=== PATIENT | female | born 1960 | race Caucasian/White ===

== ENCOUNTER 2019-12-17 09:09 | Emergency (ER) | payer OTHER, MEDICARE, SELFPAY ==
[2019-12-17 09:26] VITALS: BP 160/93; PULSE 88; RESP 18; TEMP 38.1; O2SAT 96
--- NOTE | 2019-12-17 09:52 | ED.URI ---
HPI - URI/Sore Throat General Chief Complaint: Upper Respiratory Infection Stated Complaint: Cough Time Seen by Provider: 12/17/19 09:50 Source: patient and RN notes reviewed Mode of arrival: ambulatory Limitations: no limitations History of Present Illness HPI Narrative: 58-year-old female presents with concern for cough, chest congestion, body aches, chills, sweats, fever that started on . Reports she is been taking Mucinex DM with no relief. Reports feeling of chest congestion, unable to cough up secretions. MD elicited complaint: cough Related Data Home Medications Medication Instructions Recorded Confirmed buspirone 10 mg PO TID 12/17/19 12/17/19 levothyroxine 12/17/19 12/17/19 losartan 50 mg PO DAILY 12/17/19 12/17/19 pravastatin 20 mg PO DAILY 12/17/19 12/17/19 rizatriptan [Maxalt] 10 mg PO ONCE 12/17/19 12/17/19 sertraline [Zoloft] 25 mg PO DAILY 12/17/19 12/17/19 Allergies Allergy/AdvReac Type Severity Reaction Status Date / Time adhesive tape Allergy Unknown BLISTERS Verified 12/17/19 09:50 aripiprazole Allergy Unknown Hives Verified 12/17/19 09:49 codeine Allergy Unknown Hives Verified 12/17/19 09:49 diclofenac Allergy Unknown Hives Verified 12/17/19 09:49 morphine Allergy Unknown Hypotension Verified 12/17/19 09:49 NSAIDS (Non-Steroidal Allergy Unknown Dyspnea / Verified 12/17/19 09:49 Anti-Inflamma SOB Penicillins Allergy Unknown Hives Verified 12/17/19 09:49 Khppjcc-Jvg-Mpu Reductase Allergy Unknown MUSCLE Verified 12/17/19 09:49 Inhibitor WEAKNESS lisinopril AdvReac Unknown NIGHT COUGH Verified 12/17/19 09:49 DICLOFENAC SODIUM Allergy Severe Difficulty Uncoded 12/17/19 09:50 Breathing Review of Systems Review of Systems: Narrative: CONSTITUTIONAL: Reports malaise, chills, sweats, fever. EYES: Denies visual changes, redness, or discharge. ENT: Reports rhinorrhea, congestion. Denies sinus pain, otalgia and sore throat. CARDIOVASCULAR: Denies chest pain, palpitations, or edema. RESPIRATORY: Reports cough, chest congestion. Denies dyspnea. GASTROINTESTINAL: Denies abdominal pain, nausea, vomiting, diarrhea SKIN: Denies rash or itching. MUSCULOSKELETAL: Reports myalgia. NEUROLOGIC: Reports headache. All systems reviewed & are unremarkable except as noted in HPI and below PMFSH Social History Social History Smoking status: Never smoker Alcohol intake: current Comments At time of signature, agree with nursing past medical, surgical, social and family history. There is no relevant family history pertinent to the presenting complaint Exam Narrative: Exam Narrative: GENERAL: Well-appearing, well-nourished, and in no acute distress. HEAD: Normocephalic EYES: PERRLA, conjunctivae clear ENT: Nares clear, turbinates edematous and erythematous, clear discharge. Mucous membranes moist. TM pearly vincent with dull light reflex bilaterally; no tragal tenderness. Oropharynx not erythematous without lesions. Tonsils not enlarged and without exudate, no drooling, no hoarseness, no trismus. NECK: Supple. No lymphadenopathy CHEST: Scattered expiratory wheeze, breath sounds equal. No wheezing, rhonchi, rales, or stridor. No respiratory distress, speaks in full sentences. Cough noted HEART: Regular rate and rhythm. No murmur heard. Normal peripheral pulses. SKIN: Warm, dry, no rash. NEURO: Alert and oriented x3. PSYCH: Normal mood and affect Course Course Emergency Course: Patient is aware of diagnosis, understands and agrees to treatment plan. Anticipatory guidance given. Patient agrees to follow-up as directed and is aware of reasons to seek care at the emergency department. Portions of this record may have been created with voice recognition software Vital Signs Vital signs: Vital Signs Temperature 100.5 F H 12/17/19 09:26 Pulse Rate 88 12/17/19 09:26 Respiratory Rate 18 12/17/19 09:26 Blood Pressure 160/93 H 12/17/19 09:26 Pulse Oximetry 96 12/17/19 09:26 Temperature
== END 2019-12-17 10:10 | disposition home or self-care (01) ==
PROVIDERS: Emergency Provider Nurse Practitioner
DX: J40 Bronchitis, not specified as acute or chronic (principal); R50.9 Fever, unspecified; R52 Pain, unspecified
CPT/HCPCS: 87804; 99213; G0463

== ENCOUNTER → 2020-01-02 10:03 | Outpatient (CLI) | payer OTHER, MEDICARE, SELFPAY ==
--- NOTE | ~2020-01-02 | MR_ITS ---
EXAMINATION: MR cervical spine wo con EXAM DATE: 01/02/2020 11:23 INDICATION: Neck and bilateral arm pain. TECHNIQUE: Multi-sequential, multiplanar MR images of the cervical spine were obtained without contra st. Axial T2, axial T2 MERGE sequence. Sagittal T1, T2, T2 fat saturation images also obtained. Com parison is made to prior examination from 04/07/2012. FINDINGS: The vertebral bodies are aligned in the AP dimension. Vertebral body and disc heights are well-maintained. There are no suspicious marrow signal abnormalities. The spinal cord signal intensit y and intrinsic morphology is normal. Cervicomedullary junction is normal in appearance. Paraspinal s oft tissue is unremarkable. Level by level evaluation: C2-C3: Disc does not extend beyond the endplate margin. Uncovertebral joint arthropathy: None. Facet joint arthropathy: Moderate left. Neural foraminal stenosis: No stenosis. Central canal stenosis: No stenosis. C3-C4: Disc does not extend beyond the endplate margin. Uncovertebral joint arthropathy: None. Facet joint arthropathy: Moderate to severe left, moderate right. Neural foraminal stenosis: Mild bilateral. Central canal stenosis: No stenosis. C4-C5: Disc does not extend beyond the endplate margin. Uncovertebral joint arthropathy: Mild right. Facet joint arthropathy: Moderate to severe left. Moderate right. Neural foraminal stenosis: Mild right. Central canal stenosis: No stenosis. C5-C6: Disc does not extend beyond the endplate margin. Uncovertebral joint arthropathy: Mild bilateral. Facet joint arthropathy: Moderate bilateral. Neural foraminal stenosis: No stenosis. Central canal stenosis: No stenosis. C6-C7: Disc does not extend beyond the endplate margin. Uncovertebral joint arthropathy: Mild to moderate right, mild left. Facet joint arthropathy: Mild to moderate bilateral. Neural foraminal stenosis: No stenosis. Central canal stenosis: No stenosis. C7-T1: Disc does not extend beyond the endplate margin. Uncovertebral joint arthropathy: None. Facet joint arthropathy: Moderate right, mild left. Neural foraminal stenosis: No stenosis. Central canal stenosis: No stenosis. Compared to prior study, mild interval progression in in the uncovertebral joint disease. IMPRESSION: 1. Some advanced cervical facet arthropathy as detailed above. Reviewed, dictated and finalized at location A.
== END ==
PROVIDERS: PCP Internal Medicine; Visit Provider Internal Medicine
DX: M54.2 Cervicalgia (principal)
CPT/HCPCS: 72141

== ENCOUNTER 2020-01-05 01:06 | Day surgery (SDC) | payer OTHER, MEDICARE, SELFPAY ==
[2020-01-04 09:08] VITALS: BMI 29.0
[2020-01-05] MEDS: LACTATED RINGERS 1,000 ML 150 ML IV CONT (07:38)
[2020-01-05 07:45] VITALS: BP 133/87; PULSE 84; RESP 18; TEMP 36.7; O2SAT 100; BMI 28.7
--- NOTE | 2020-01-05 08:27 | WPDGICN ---
Assessment and Plan Additional Plan This is a 59-year-old white female patient seen in evaluation at the request of Dr. Odell. patient complains of a 6 month history of nausea. Occasional vomiting. She denies any fever. She comes planes of occasional loose stools. He denies any blood in her stools. Past medical history is significant for GE reflux disease. She denies any difficulty swallowing. She denies any weight loss or bleeding. She chronically takes Nexium 40 mg p.o. daily. For control of symptoms. Past medical history is significant last colonoscopy was 10 years ago. An EGD P performed 2 years ago revealed a distal esophageal web. Current medications include Nexium 40 mg p.o. daily. Albuterol, boost per own, clonazepam, cyclobenzaprine, Vistaril, levothyroxine, losartan, hydrochlorothiazide, Maxalt, Zoloft. She has multiple allergies listed. Physical exam reveals her to be alert. Oriented x3. Vital signs stable. HEENT exam unremarkable. Lungs are clear to auscultation and percussion. Heart is without murmur or extra sounds. Abdominal exam bowel sounds are present soft nontender with no organomegaly. Digital external rectal exam normal. Impression 1. GE reflux disease this appears chronic. Follow-up EGD is advised given her current symptoms of nausea. Continue Nexium in the interim. 2. Neoplasia screening. This is advised because of her age is been 10 years since last colonoscopy. 3. Irritable bowel syndrome. suspected , her symptom complex matchesthis syndrome most likely. Plan is for fiber supplements. Given her nausea brief interval trial of Reglan is suggested. GI Consult Note Consult date/time: 01/05/20 08:27 HPI: Leona Pizarro is a 59 year old female [facility] Social History Social History Smoking status: Never smoker Alcohol intake: current Gender identity (if verbalized by the patient): Female Meds Home Medications and Allergies Home Medications Medication Instructions Recorded Confirmed Type albuterol sulfate 2 puff INHALATION QID PRN #8.5 gm 12/17/19 01/04/20 Rx buspirone 50 mg PO DAILY 12/17/19 01/04/20 History levothyroxine 0.112 mcg PO QAM 12/17/19 01/04/20 History pravastatin 20 mg PO QAM 12/17/19 01/04/20 History rizatriptan [Maxalt] 10 mg PO ONCE PRN 12/17/19 01/04/20 History sertraline [Zoloft] 25 mg PO QAM 12/17/19 01/04/20 History clonazepam 1 mg PO HS 01/04/20 01/04/20 History cyclobenzaprine 10 mg PO HS 01/04/20 01/04/20 History esomeprazole magnesium [Nexium] 40 mg PO QAM 01/04/20 01/04/20 History hydroxyzine pamoate [Vistaril] 25 mg PO HS 01/04/20 01/04/20 History ipratropium bromide 2 spray NASAL BID PRN 01/04/20 01/04/20 History loratadine 10 mg PO QAM 01/04/20 01/04/20 History losartan-hydrochlorothiazide 1 tablet PO QAM 01/04/20 01/04/20 History phenazopyridine [Pyridium] 200 mg PO TID PRN 01/04/20 01/04/20 History Allergies Allergy/AdvReac Type Severity Reaction Status Date / Time acetaminophen Allergy Severe Rash Verified 01/05/20 07:27 adhesive tape Allergy Unknown BLISTERS Verified 01/05/20 07:27 aripiprazole Allergy Unknown Irritable Verified 01/05/20 07:27 morphine Allergy Unknown Hypotension Verified 01/04/20 08:55 NSAIDS (Non-Steroidal Allergy Unknown Rash Verified 01/05/20 07:27 Anti-Inflamma Penicillins Allergy Unknown Hives Verified 01/05/20 07:27 celecoxib [From Celebrex] AdvReac Unknown Nausea and Verified 01/05/20 07:27 Vomiting lisinopril AdvReac Unknown NIGHT COUGH Verified 01/05/20 07:27 [id number]-[id number] Reductase AdvReac Unknown MUSCLE Verified 01/05/20 07:27 Inhibitor WEAKNESS DICLOFENAC SODIUM Allergy Severe Difficulty Uncoded 01/05/20 07:27 Breathing Vital Signs Vital Signs - 24 hr 01/05/20 07:45 Temperature 36.7 C Pulse Rate 84 Respiratory Rate 18 Blood Pressure 133/87 Pulse Oximetry 100
--- NOTE | 2020-01-05 08:37 | WPDANESEPPF ---
Anes - Initial Pre Proc Eval Procedure: Operation Date: 01/05/20 08:30 Proposed Procedures p Esophagogastroduodenoscopy & Screening Colonoscopy - Cliff Ji MD Date/Time: 01/05/20 08:37 Surgeon: Cliff iJ MD Pre Op Diagnosis: Neoplasm Screening/Gerd Patient Data Age: 59 Gender: F Height: 5 ft 10 in Weight: 90.9 kg Last Vital Signs Temp 98.1 F 01/05/20 07:45 Pulse 84 01/05/20 07:45 Resp 18 01/05/20 07:45 BP 133/87 01/05/20 07:45 Pulse Ox 100 01/05/20 07:45 Allergies Allergy/AdvReac Type Severity Reaction Status Date / Time acetaminophen Allergy Severe Rash Verified 01/05/20 07:27 adhesive tape Allergy Unknown BLISTERS Verified 01/05/20 07:27 aripiprazole Allergy Unknown Irritable Verified 01/05/20 07:27 morphine Allergy Unknown Hypotension Verified 01/04/20 08:55 NSAIDS (Non-Steroidal Allergy Unknown Rash Verified 01/05/20 07:27 Anti-Inflamma Penicillins Allergy Unknown Hives Verified 01/05/20 07:27 celecoxib [From Celebrex] AdvReac Unknown Nausea and Verified 01/05/20 07:27 Vomiting lisinopril AdvReac Unknown NIGHT COUGH Verified 01/05/20 07:27 Npdagmr-Nbs-Dzl Reductase AdvReac Unknown MUSCLE Verified 01/05/20 07:27 Inhibitor WEAKNESS DICLOFENAC SODIUM Allergy Severe Difficulty Uncoded 01/05/20 07:27 Breathing Home Medications Medication Instructions Recorded Confirmed Type albuterol sulfate 2 puff INHALATION QID PRN #8.5 gm 12/17/19 01/04/20 Rx buspirone 50 mg PO DAILY 12/17/19 01/04/20 History levothyroxine 0.112 mcg PO QAM 12/17/19 01/04/20 History pravastatin 20 mg PO QAM 12/17/19 01/04/20 History rizatriptan [Maxalt] 10 mg PO ONCE PRN 12/17/19 01/04/20 History sertraline [Zoloft] 25 mg PO QAM 12/17/19 01/04/20 History clonazepam 1 mg PO HS 01/04/20 01/04/20 History cyclobenzaprine 10 mg PO HS 01/04/20 01/04/20 History esomeprazole magnesium [Nexium] 40 mg PO QAM 01/04/20 01/04/20 History hydroxyzine pamoate [Vistaril] 25 mg PO HS 01/04/20 01/04/20 History ipratropium bromide 2 spray NASAL BID PRN 01/04/20 01/04/20 History loratadine 10 mg PO QAM 01/04/20 01/04/20 History losartan-hydrochlorothiazide 1 tablet PO QAM 01/04/20 01/04/20 History phenazopyridine [Pyridium] 200 mg PO TID PRN 01/04/20 01/04/20 History Patient hx anesthesia problems: none Family hx anesthesia problems: none [facility] Past Medical History Medical History (Updated 01/05/20 @ 08:36 by Ronald Petersen MD) Deep vein thrombophlebitis of leg Hyperlipidemia Hypertension Migraine Peripheral vascular disease Social History Social History Smoking status: Never smoker Alcohol intake: current Gender identity (if verbalized by the patient): Female Anes - Eval Final PreProcedure Day of Procedure 01/05/20 08:37 Patient weight: overweight Heart: regular rate and rhythm Lungs: clear to auscultation Airway: Mallampati scale class II Neurological: alert and oriented Last oral intake: >/= 8 hours ASA classification: III Emergent: no Anesthetic plan: proceed Anesthesia type and monitoring: general GIVS and standard monitoring Informed Consent: The patient's anesthetic plan and its attendant risks and benefits were discussed with the patient/family/POA. Questions were solicited and answers provided to the satisfaction of the patient/family/POA.
[2020-01-05] MEDS: BENZOCAINE (*SP) 60 ML SPRAY CAN (HURRICAINE) 1 SPRAY MUCOUS MEM (09:20)
[2020-01-05 09:53] VITALS: BP 112/72; PULSE 82; RESP 16; O2SAT 95
[2020-01-05 10:03] VITALS: BP 117/73; PULSE 80; RESP 22; O2SAT 97
[2020-01-05 10:13] VITALS: BP 121/77; PULSE 70; RESP 20; O2SAT 100
== END 2020-01-05 10:30 | disposition home or self-care (01) ==
PROVIDERS: PCP Internal Medicine; Visit Provider Internal Medicine Gastroenterology
PROC: 0DJ08ZZ Inspection of Upper Intestinal Tract, Via Natural or Artificial Opening Endoscopic (ICD-10-PCS; CPT 43235; principal; 2020-01-05 08:30)
DX: Z12.11 Encounter for screening for malignant neoplasm of colon (principal); K57.30 Diverticulosis of large intestine without perforation or abscess without bleeding; K64.8 Other hemorrhoids; I10 Essential (primary) hypertension; E78.5 Hyperlipidemia, unspecified; I73.9 Peripheral vascular disease, unspecified; Z86.718 Personal history of other venous thrombosis and embolism
CPT/HCPCS: 45378; 87081; J2704; J7120

== ENCOUNTER 2020-02-29 09:40 | Outpatient (CLI) | payer OTHER, MEDICARE, SELFPAY ==
--- NOTE | 2020-02-29 11:00 | NEURO_ITS ---
Patient Number: [id number] Impression: # Complains of numbness and pain. History of trauma followed by surgery on left hand. # No Carpal Tunnel Syndrome or ulnar neuropathy. # Needle/EMG exam not requested. # Clinical correlation recommended. Symptomatology could be related to local trauma. Nerve Conduction Studies Anti Sensory Summary Table Stim Site NR Peak (ms) P-T Amp (?V) Site1 Site2 Delta-P (ms) Dist (cm) Fahad (m/s) Left Median Anti Sensory (2-3nd Digit) Wrist 2.9 48.3 Wrist 2-3nd Digit 2.9 14.0 48 Wrist 3.0 51.6 Wrist 2-3nd Digit 2.9 14.0 48 Right Median Anti Sensory (2-3nd Digit) Wrist 2.9 32.7 Wrist 2-3nd Digit 2.9 14.0 48 Wrist 2.9 27.4 Wrist 2-3nd Digit 2.9 14.0 48 Left Radial Anti Sensory (Base 1st Digit) Wrist 2.1 13.5 Wrist Base 1st Digit 2.1 0.0 Right Radial Anti Sensory (Base 1st Digit) Wrist 2.5 10.7 Wrist Base 1st Digit 2.5 0.0 Left Ulnar Anti Sensory (5th Digit) Wrist 2.5 34.9 Wrist 5th Digit 2.5 14.0 56 Right Ulnar Anti Sensory (5th Digit) Wrist 2.4 59.4 Wrist 5th Digit 2.4 14.0 58 Motor Summary Table Stim Site NR Onset (ms) O-P Amp (mV) Site1 Site2 Delta-0 (ms) Dist (cm) Fahad (m/s) Left Median Motor (Abd Poll Brev) Wrist 3.4 1.9 Elbow Wrist 5.1 31.0 61 Elbow 8.5 2.8 Right Median Motor (Abd Poll Brev) Wrist 3.1 3.1 Elbow Wrist 5.4 30.0 56 Elbow 8.5 1.3 Left Ulnar Motor (Abd Dig Minimi) Wrist 2.7 4.7 A Elbow Wrist 5.9 34.0 58 A Elbow 8.6 3.5 Right Ulnar Motor (Abd Dig Minimi) Wrist 2.5 4.7 A Elbow Wrist 5.4 32.0 59 A Elbow 7.9 3.6 F Wave Studies NR F-Lat (ms) L-R F-Lat (ms) Left Median (Mrkrs) (Abd Poll Brev) 27.86 0.19 Right Median (Mrkrs) (Abd Poll Brev) 28.05 0.19 Left Ulnar (Mrkrs) (Abd Dig Min) 29.85 2.72 Right Ulnar (Mrkrs) (Abd Dig Min) 27.12 2.72 MTDD
== END 2020-02-29 09:41 | disposition home or self-care (01) ==
LOC: ANHNEURO 09:42
PROVIDERS: PCP Internal Medicine; Visit Provider Plastic Surgery
DX: R20.0 Anesthesia of skin (principal); M79.642 Pain in left hand; M79.641 Pain in right hand; R53.1 Weakness
CPT/HCPCS: 95911

== ENCOUNTER → 2020-07-30 12:37 | Outpatient (CLI) | payer OTHER, MEDICARE, SELFPAY ==
--- NOTE | ~2020-07-30 | US_ITS ---
EXAMINATION: US thyroid EXAM DATE: 07/30/2020 12:56 INDICATION: Hypothyroidism on medications. TECHNIQUE: Multiple grayscale and Doppler images of the thyroid were obtained (by a technologist who performed the scan) and subsequently reviewed. Individual nodules and recommendations may be reporte d in accordance with TI-RADS system as designated by the 2017 ACR White Paper TI-RADS committee. Comp sharla is made to prior examination from 11/28/2010. FINDINGS: Right thyroid lobe measures 4.4 x 1.6 x 1.2 cm, the left measuring 4.4 x 1.6 x 1.5 cm. There is diffu sely heterogeneous thyroid echogenicity, with mild hypervascularity overall. No focal nodules are queta ntified. IMPRESSION: Mildly enlarged, heterogeneous and hypervascular thyroid. Appearance is consistent with H ashimoto's thyroiditis. Reviewed, dictated and finalized at location B. IMPRESSION: Mildly enlarged, heterogeneous and hypervascular thyroid. Appearanc e is consistent with Ashley's thyroiditis.
== END ==
PROVIDERS: PCP Internal Medicine; Visit Provider Internal Medicine
DX: E03.9 Hypothyroidism, unspecified (principal)
CPT/HCPCS: 76536

== ENCOUNTER → 2020-07-30 12:51 | Outpatient (CLI) | payer OTHER, MEDICARE, SELFPAY ==
--- NOTE | ~2020-07-30 | XR_ITS ---
XR finger 1st RT min 2V DATE: 07/30/2020 13:31 INDICATION: Pain TECHNIQUE: 3 views COMPARISON: None FINDINGS: No fracture or dislocation, periosteal reaction or bone destruction, radiopaque soft tissue foreign body or subcutaneous emphysema. IMPRESSION: Negative Reviewed, dictated and finalized at location A. IMPRESSION: Negative
--- NOTE | ~2020-07-30 | XR_ITS ---
XR finger 1st LT min 2V DATE: 07/30/2020 13:31 INDICATION: Pain TECHNIQUE: 3 views COMPARISON: None FINDINGS: No fracture or dislocation, periosteal reaction or bone destruction, radiopaque foreign bod y or subcutaneous emphysema. IMPRESSION: Negative Reviewed, dictated and finalized at location A. IMPRESSION: Negative
== END ==
PROVIDERS: PCP Internal Medicine; Visit Provider Nurse Practitioner Adult Health
DX: M79.645 Pain in left finger(s) (principal); M79.644 Pain in right finger(s)
CPT/HCPCS: 73140

== ENCOUNTER → 2020-09-16 09:20 | Outpatient (CLI) | payer OTHER, MEDICARE, SELFPAY ==
--- NOTE | ~2020-09-16 | DEXA_ITS ---
Bone Density Report Name: Leona Pizarro Age: 59 Sex: Female Ethnicity: White Date of : 1960 Indication: postmenopausal; screening for osteoporosis; height loss; history of glucocorticoids; prior fracture; asthma or emphysema; hysterectomy; Referring Provider: Cass, Branden Study: Bone densitometry was performed. Exam Date: September 16, 2020 Accession number: [id number] Bone Density: Region BMD T-score Z-score Classification AP Spine (L1-L4) 1.142 0.9 2.2 Normal World Health Organization criteria for BMD impression classify patients as: Normal (T-score at or above -1.0), Osteopenia (T-score between -1.0 and -2.5), or Osteoporosis (T-score at or below -2.5). Clinical Information Provided by Patient: Has had a low trauma fracture Has taken Glucocorticoids Has used the following medications: Vitamin D Has the following medical conditions: Asthma or Emphysema, Hysterectomy Patient maximum height was 71 Menopause Age: 43 Does not regularly consume dairy products Drinks caffeinated beverages Onset of menses at age 12 Number of children 5 Impression: The patient has normal bone mass. The patient has risk factors, including: previous fracture, history of glucocorticoid therapy. Discussion: LOW RISK OF FRACTURE; BONE DENSITY IS WELL ABOVE THE MINIMUM DESIRABLE LEVEL AND ABOVE AVERAGE FOR AGE AND SEX AT ALL SKELETAL SITES TESTED. This person's bone density is above expected limits for age and sex. This is rarely clinically significant, but should be pursued if there are significant musculoskeletal complaints. The patient should follow a healthful lifestyle (good nutrition with adequate calcium and vitamin D, and appropriate weight-bearing exercise). Follow-Up: Consider repeating this study in 5 years or sooner if there is some new clinical indication. Reported by: CHRIS on 09/16/2020 10:00:00 AM. Reviewed, dictated and finalized at location AMary JOHNSON
== END ==
PROVIDERS: PCP Internal Medicine; Visit Provider Internal Medicine
DX: Z13.820 Encounter for screening for osteoporosis (principal); Z78.0 Asymptomatic menopausal state
CPT/HCPCS: 77080

== ENCOUNTER 2020-09-18 08:25 | Outpatient (CLI) | payer OTHER, MEDICARE, SELFPAY ==
--- NOTE | ~2020-09-18 | NM_ITS ---
EXAMINATION: NM bone scan whole body DATE: 09/18/2020 13:14 INDICATION: Bilateral hip and groin pain. TECHNIQUE: 25.6 mCi Tc-99m HDP was administered intravenously. Delayed whole-body scintigrams were o btained. COMPARISON: CT abdomen and pelvis 03/29/2010, right hip radiographs 09/11/2013 FINDINGS: There is joint-centered increased activity at the acromioclavicular joints and sternoclavic ular joints without comparison, likely osteoarthritis. There are bilateral hip arthroplasties. There is normal activity in the bone adjacent to the arthroplasties. IMPRESSION: 1. Normal bilateral hip arthroplasties. Comparison with radiographs is recommended. Reviewed, dictated and finalized at location A. ANTINE INSPECTOR IMPRESSION: 1. Normal bilateral hip arthroplasties. Comparison with radiographs is recommen ded.
== END 2020-09-18 08:26 | disposition home or self-care (01) ==
PROVIDERS: PCP Internal Medicine; Visit Provider Orthopaedic Surgery
DX: M25.551 Pain in right hip (principal); M25.552 Pain in left hip
CPT/HCPCS: 78306; A9561

== ENCOUNTER → 2020-09-26 06:59 | Outpatient (CLI) | payer OTHER, MEDICARE, SELFPAY ==
--- NOTE | ~2020-09-26 | MR_ITS ---
EXAMINATION: MR lumbar spine wo con DATE: 09/26/2020 07:52 INDICATION: Low back pain. Bilateral leg numbness. TECHNIQUE: Magnetic resonance imaging (MRI) of the lumbar spine was performed without intravenous con trast. Sequences included sagittal T2-weighted FSE, sagittal T2-weighted FS FSE, sagittal T1-weighted FSE, and axial T2-weighted FSE. COMPARISON: None FINDINGS: There is 6 degrees dextrocurvature of thoracolumbar spine. There is 3 mm anterolisthesis of L3 on L4. Vertebral body heights are normal. There is mildly decreased disc height at L3-L4 and L4-L 5. There is endplate remodeling at L4-L5 and L5-S1. The distal spinal cord signal intensity is normal . The conus medullaris is at L1-L2. The following disc levels are specifically discussed: L1-L2: The disc does not extend beyond the endplate margin. There is severe bilateral facet joint ost eoarthritis. There is mild bilateral neural foraminal stenosis. There is no central canal stenosis. L2-L3: The disc is bulging. There is severe bilateral facet joint osteoarthritis. There is mild bilat eral neural foraminal stenosis. There is no central canal stenosis. L3-L4: The disc does not extend beyond the endplate margin. There is severe bilateral facet joint ost eoarthritis. There is mild bilateral neural foraminal stenosis. There is mild central canal stenosis. L4-L5: The disc is bulging and has an annular fissure. There is severe bilateral facet joint osteoart hritis. There is mild bilateral neural foraminal stenosis. There is mild central canal stenosis. L5-S1: The disc is bulging. There is moderate right and severe left facet joint osteoarthritis. There is mild bilateral neural foraminal stenosis. There is mild central canal stenosis. IMPRESSION: 1. Mild lumbar spondylosis. Reviewed, dictated and finalized at location A. SETTER IMPRESSION: 1. Mild lumbar spondylosis.
== END ==
PROVIDERS: PCP Internal Medicine; Visit Provider Orthopaedic Surgery
DX: M47.26 Other spondylosis with radiculopathy, lumbar region (principal)
CPT/HCPCS: 72148

== ENCOUNTER 2020-10-14 21:32 | Emergency (ER) | payer OTHER, MEDICARE, SELFPAY ==
--- NOTE | ~2020-10-14 | XR_ITS ---
EXAMINATION: XR chest 2V 10/14/2020 22:55 INDICATION: Chest pain PROCEDURE: 2 view chest COMPARISON: No prior studies for comparison. FINDINGS: The lungs are clear. The cardiomediastinal silhouette is within normal limits. There are no pleural effusions. There is no pneumothorax suspected. IMPRESSION: 1: NO ACUTE CARDIOPULMONARY DISEASE. Reviewed, dictated and finalized at location A. IT CHECKER
[2020-10-14 21:30] VITALS: BP 160/92; PULSE 78; RESP 14; TEMP 36.3; O2SAT 100
[2020-10-14 21:37] VITALS: RESP 18; O2SAT 100
--- NOTE | 2020-10-14 21:45 | ECG_ITS ---
Measurements Intervals [place] Rate: 76 P: 26 GA: 188 QRS: -5 QRSD: 158 T: 53 QT: 388 QTc: 438 Interpretive Statements SINUS RHYTHM RIGHT BUNDLE BRANCH BLOCK BASELINE ARTIFACT- II, III, AVF, V3 ABNORMAL ECG Electronically Signed On 10-15-2020 7:47:32 ENGINE MONITOR by Jose A Hopkins D.O.
--- NOTE | 2020-10-14 21:45 | ED.ANXIETY ---
HPI - Anxiety General Chief Complaint: Anxiety <Daya Mendes MD - Last Filed: 10/15/20 01:16> Stated Complaint: anxiety with CP, SOB - resolved <Daya Mendes MD - Last Filed: 10/15/20 01:16> Time Seen by Provider: 10/14/20 21:45 <Daya Mendes MD - Last Filed: 10/15/20 01:16> Source: patient, family and EMS <Daya Mendes MD - Last Filed: 10/15/20 01:16> Mode of arrival: EMS <Daya Mendes MD - Last Filed: 10/15/20 01:16> Limitations: no limitations <Daya Mendes MD - Last Filed: 10/15/20 01:16> History of Present Illness HPI narrative: Patient is a 59-year-old female with a history of anxiety and depression who presents for evaluation of chest pain and shortness of breath that is resolved at the time of assessment. Patient reportedly took a flight from [place] to [place] this evening, states that she resides between the 2 locations. States that last week she had symptoms that were concerning for Covid with loss of sense of smell and taste, but no cough or shortness of breath thus never got tested. Patient states that her depression has been increased lately and her psychiatrist increased her Cymbalta dose which has made her feel jittery with increased anxiety. This evening, patient states that she had felt anxious and tired, thus when she got off the flight she and her family member ate some food, she smoked marijuana and then tried to go to sleep. Patient then states that she felt acutely short of breath, tingling in her lips, hands and feet with a dull, aching pressure over her chest and associated panic. Patient states that she called EMS because she was concerned she was having a heart attack. She denied any jaw pain, arm pain or back pain. No nausea or vomiting. Patient states that the paramedics told her she was having an anxiety attack but she disagreed. <Daya Mendes MD - Last Filed: 10/15/20 01:16> Related Data Home Medications: Home Medications Medication Instructions Recorded Confirmed buspirone 50 mg PO DAILY 12/17/19 01/04/20 levothyroxine 0.112 mcg PO QAM 12/17/19 01/04/20 pravastatin 20 mg PO QAM 12/17/19 01/04/20 rizatriptan [Maxalt] 10 mg PO ONCE PRN 12/17/19 01/04/20 sertraline [Zoloft] 25 mg PO QAM 12/17/19 01/04/20 clonazepam 1 mg PO HS 01/04/20 01/04/20 cyclobenzaprine 10 mg PO HS 01/04/20 01/04/20 esomeprazole magnesium [Nexium] 40 mg PO QAM 01/04/20 01/04/20 hydroxyzine pamoate [Vistaril] 25 mg PO HS 01/04/20 01/04/20 ipratropium bromide 2 spray NASAL BID PRN 01/04/20 01/04/20 loratadine 10 mg PO QAM 01/04/20 01/04/20 losartan-hydrochlorothiazide 1 tablet PO QAM 01/04/20 01/04/20 phenazopyridine [Pyridium] 200 mg PO TID PRN 01/04/20 01/04/20 <Daya Mendes MD - Last Filed: 10/15/20 01:16> Allergies/Adverse Reactions: Allergies Allergy/AdvReac Type Severity Reaction Status Date / Time acetaminophen Allergy Severe Rash Verified 03/06/20 09:23 adhesive tape Allergy Unknown BLISTERS Verified 03/06/20 09:23 aripiprazole Allergy Unknown Irritable Verified 03/06/20 09:23 morphine Allergy Unknown Hypotension Verified 03/06/20 09:23 NSAIDS (Non-Steroidal Allergy Unknown Rash Verified 03/06/20 09:23 Anti-Inflamma Penicillins Allergy Unknown Hives Verified 03/06/20 09:23 celecoxib [From Celebrex] AdvReac Unknown Nausea and Verified 03/06/20 09:23 Vomiting lisinopril AdvReac Unknown NIGHT COUGH Verified 03/06/20 09:23 Xqssdle-Cxw-Yuo Reductase AdvReac Unknown MUSCLE Verified 03/06/20 09:23 Inhibitor WEAKNESS duloxetine [From Cymbalta] AdvReac Vomiting Verified 10/14/20 21:43 oxycodone [From OxyContin] AdvReac Nausea and Verified 10/14/20 21:43 Vomiting DICLOFENAC SODIUM Allergy Severe Difficulty Uncoded 03/06/20 09:23 Breathing <Daya Mendes MD - Last Filed: 10/15/20 01:16> Review of Systems Review of Systems: Narrative: CONSTITUTIONAL: Denies fever, chills, or sweats. EYES: Denies visual ch
[2020-10-14 22:30] VITALS: BP 117/82; PULSE 81; RESP 16; O2SAT 100
[2020-10-14 22:48] LABS: Basophils Percent Auto 0.3 % (0.2-1.2); Eosinophils Percent Auto 0.3 % (0-4.4); Hematocrit 39.4 % (37.0-47.0); Hemoglobin 13.3 g/dL (12.0-15.0); Immature Granulocyte Absolute 0.03 K/mm3 (0.00-0.031); Immature Granulocyte Percent A 0.3 % (0-0.5); Lymphocytes Absolute Auto 3.15 K/mm3 (0.9-3.2); Lymphocytes Percent Auto 32.4 % (18.3-44.2); Mean Corpuscular HGB Conc 33.8 g/dl (32-36); Mean Corpuscular Hemoglobin 31.7 pg (26-34); Mean Corpuscular Volume 93.8 fl (80-100); Monocytes Absolute Auto 0.7 K/mm3 (0.1-0.6); Monocytes Percent Auto 7.4 % (2.6-8.5); Neutrophils Absolute Auto 5.8 K/mm3 (1.3-6.7); Neutrophils Percent Auto 59.3 % (45.5-73.1); Platelet Count Result 305 k/mm3 (150-375); Red Cell Distribution Width 12.8 % (11.5-14.5); White Blood Count 9.7 K/mm3 (4.5-10.0)
[2020-10-14 22:59] LABS: INR 0.9; Prothrombin Time 12.5 Seconds (11.1-14.7)
[2020-10-14 23:00] LABS: Partial Thromboplastin Time 24.7 SECONDS (22.3-36.8)
[2020-10-14 23:02] LABS: Anion Gap 10 mmol/L (8-16); Blood Urea Nitrogen 15 mg/dL (7-17); Calcium 9.5 mg/dL (8.4-10.2); Carbon Dioxide 27 mmol/L (22-30); Chloride 100 mmol/L (98-107); D Dimer 0.37 ug/mL (<0.48); Estimated CRCL calculation 85 ml/min; Estimated Glomerular Filt Rate > 60; Glucose 112 mg/dL (65-105); Potassium 3.5 mmol/L (3.4-5.0); Sodium 137 mmol/L (137-145)
[2020-10-14 23:14] LABS: Troponin I < 0.012 ng/mL (0.000-0.034)
[2020-10-14 23:27] VITALS: BP 122/77; PULSE 74; RESP 18; O2SAT 94
[2020-10-14 23:50] LABS: Add Urine Microscopic? YES; Appearance Urine Clear (Clear); Bacteria Urine Trace /hpf; Bilirubin Urine Negative (Negative); Color Urine Amber (Yellow); Glucose Urine UA Negative (Negative); Ketones Urine Negative (Negative); Leukocyte Esterase Ur 1+ LEU/UL (Negative); Mucus Urine Few /lpf; Nitrate Urine Negative (Negative); Protein Urine 2+ mg/dL (Negative); RBC Urine 0-2 /hpf (0-2); Specific Grav Ur 1.018 (1.001-1.035); Squamous Epithelial Cell Urine Many /hpf (Few)
[2020-10-14 23:51] LABS: Blood Urine Negative (Negative)
[2020-10-15 00:10] LABS: Amphetamine Screen Urine Negative (Negative); Barbiturate Screen Urine Negative (Negative); Benzodiazepines Screen Urine Negative (Negative); Cannabinoid Screen Urine Positive (Negative); Cocaine Screen Urine Negative (Negative); Methadone Screen Urine Negative (Negative); Opiate Screen Urine Negative (Negative); Phencyclidine Screen Urine Negative (Negative)
[2020-10-15 01:01] VITALS: BP 121/60; PULSE 69; RESP 16; O2SAT 97
[2020-10-15 01:56] LABS: Troponin I < 0.012 ng/mL (0.000-0.034)
[2020-10-15 02:02] VITALS: BP 127/63; PULSE 69; RESP 18; TEMP 36.8; O2SAT 94
== END 2020-10-15 02:04 | disposition home or self-care (01) ==
PROVIDERS: Emergency Provider Emergency Medicine; PCP Internal Medicine
DX: R07.89 Other chest pain (principal); F41.9 Anxiety disorder, unspecified; E78.5 Hyperlipidemia, unspecified; I10 Essential (primary) hypertension; I73.9 Peripheral vascular disease, unspecified; I45.10 Unspecified right bundle-branch block; Z79.899 Other long term (current) drug therapy
CPT/HCPCS: 36415; 71046; 80048; 80307; 81001; 84484; 85025; 85380; 85610; 85730; 87086; 93005; 99284

== ENCOUNTER → 2022-01-02 09:34 | Outpatient (CLI) | payer OTHER, MEDICARE, SELFPAY ==
--- NOTE | ~2022-01-02 | US_ITS ---
EXAMINATION: US thyroid DATE: 01/02/2022 09:49 INDICATION: Nontoxic goiter. TECHNIQUE: Multiple ultrasound images of the thyroid were obtained. COMPARISON: Ultrasound 07/30/2020 FINDINGS: The right thyroid lobe measures 5.4 x 1.7 x 1.3 cm. The left thyroid lobe measures 5.1 x 2.0 x 1.5 c m. The thyroid is heterogeneously hypoechoic with increased vascularity. No discrete nodule. IMPRESSION: 1. Heterogeneous, hypervascular thyroid, consistent with chronic lymphocytic (Ashley) thyroiditis. Reviewed, dictated and finalized at location A. LABORER IMPRESSION: 1. Heterogeneous, hypervascular thyroid, consistent with chronic lymphocytic (H ashimoto) thyroiditis.
== END ==
PROVIDERS: PCP Internal Medicine; Visit Provider Internal Medicine Endocrinology, Diabetes & Metabolism
DX: E04.9 Nontoxic goiter, unspecified (principal)
CPT/HCPCS: 76536

== ENCOUNTER → 2022-01-29 11:41 | Outpatient (CLI) | payer OTHER, MEDICARE, SELFPAY ==
--- NOTE | ~2022-01-29 | CT_ITS ---
EXAMINATION: CT diagnostic chest wo con EXAM DATE: 01/29/2022 12:00 INDICATION: Multiple nodules of lung. Wheezing. TECHNIQUE: Spiral CT of the chest without contrast. Axial, coronal and sagittal images of the chest were reviewed. Coronal maximum intensity pixel images of chest reviewed. The dose-length product ( DLP) for this examination was 201.48 mGy-cm. The exposure was tailored according to patient size (au to mA exposure control), and iterative reconstruction (ASIR) was used as additional dose reduction te nique. There is no prior study for comparison. FINDINGS: The lungs are clear. There are no pleural or pericardial effusions. Tracheobronchial t ree is patent. There is no mediastinal, hilar or axillary lymphadenopathy. There is no pneumothor ax. Heart normal in size. There is mild to moderate coronary arterial calcification, arterial scl erosis. There are cholecystectomy clips. There is mild thoracic spondylosis without osteoblastic or osteolytic lesions identified. IMPRESSION: Unremarkable chest CT exam. Reviewed, dictated and finalized at location A. IMPRESSION: Unremarkable chest CT exam.
== END ==
PROVIDERS: PCP Internal Medicine; Visit Provider Internal Medicine
DX: R91.8 Other nonspecific abnormal finding of lung field (principal)
CPT/HCPCS: 71250

== ENCOUNTER 2022-04-20 00:39 | Observation (INO) | payer OTHER, MEDICARE, SELFPAY ==
[2022-04-20] VITALS (28 sets, daily range): BP systolic 124–172; BP diastolic 67–86; PULSE 46–91; RESP 10–28; TEMP 36.3–36.9; O2SAT 97–100; BMI 34.5
--- NOTE | 2022-04-20 | ECHO_ITS ---
Patient Info Name: Leona Pizarro Age: 61 years : 1960 Gender: Female Ht: 68 in Wt: 227 lbs BSA: 2.26 m2 HR: 55 bpm BP: 138 / 68 mmHg Heart Rhythm: Sinus Rhythm Exam Date: 04/20/2022 2:44 PM Exam Location: [facility] Patient Status: Inpatient Admit Date: 04/20/2022 Staff Ordering Physician: Abelardo Aquino MD Slab Polisher: Chapincito Mckenzie, BINACS, RT Attending Provider: Polly Farmer MD Exam Type: CA echo doppler color flow Study Info Indications R07.9 - Chest pain, unspecified Complete two-dimensional, color flow and Doppler transthoracic echocardiogram is performed. Strain analysis performed. Summary 1. Complete two-dimensional, color flow and Doppler transthoracic echocardiogram is performed. 2. Mild sclerosis of the aortic valve which is not resulting in stenosis at this time. 3. Normal left ventricular dimension thickness and systolic function. 4. No ischemic wall motion abnormalities. Left Ventricle Left ventricular chamber dimension is normal. Left ventricular systolic function is normal, estimated at 55-60%. The left ventricular diastolic function is normal. Right Ventricle Right ventricular chamber dimension is normal. Left Atria Left atrial chamber dimension is normal. Right Atria Right atrial chamber dimension is normal. Aortic Valve The aortic valve is trileaflet. There is mild aortic valve sclerosis. Pulmonic Valve The pulmonic valve is not well visualized. Mitral Valve The mitral valve has normal leaflets. Tricuspid Valve The tricuspid valve leaflets are normal. Pericardium/Pleural The pericardium appears normal. Aorta The aortic root size at the sinus of Valsalva is normal. Left Ventricular Outflow Tract Name Value Normal LVOT 2D LVOT Diameter 2.1 cm LVOT Doppler LVOT Peak Velocity 114 cm/s LVOT Peak Gradient 5 mmHg LVOT Mean Gradient 3 mmHg LVOT VTI 27 cm LVOT VTI/AV VTI Ratio 1.0 LVOT Stroke Volume 96 ml LVOT CO 5.2 l/min LVOT CI 2.3 l/min/m2 Mitral Valve Name Value Normal MV Doppler MV Decel Bryan 210 cm/s2 MV PHT 101 ms MV Area (PHT) 2.2 cm2 4.0-5.0 MV Diastolic Function MV E Peak Velocity 73 cm/s MV A Peak Velocity 48 cm/s MV E/A 1.5 MV Decel Time 349 ms MV Annular TDI
--- NOTE | ~2022-04-20 | NM_ITS ---
EXAMINATION: NM radha stress w perfusion DATE: 04/20/2022 14:32 INDICATION: Chest pain TECHNIQUE: Rest images were obtained following intravenous administration of 5.8 mCi Tc99m tetrofosmi n (Myoview). The patient was infused intravenously with Lexiscan (Regadenoson). Then, 18.8 mCi Tc99m tetrofosmin (Myoview) was administered intravenously, and stress images were obtained in the supine p osition. Repeat post stress imaging was obtained in the prone position due to significant diaphragmat ic attenuation artifact along the inferior wall. Data was reconstructed into short axis and horizonta l and vertical long axis SPECT images. Gated SPECT images were also obtained. COMPARISON: None. FINDINGS: There is no definite reversible or fixed perfusion abnormality to suggest ischemia or infar ction. There is normal left ventricular chamber size, wall motion and ejection fraction. Left ventr icular ejection fraction measures >70%. IMPRESSION: 1. Normal myocardial perfusion at rest and during stress. 2. Left ventricular ejection fraction measuring >70%. Reviewed, dictated and finalized at location A.
--- NOTE | ~2022-04-20 | XR_ITS ---
EXAMINATION: XR chest 1V portable DATE: 04/20/2022 01:18 INDICATION: Chest pain TECHNIQUE: frontal view of the chest was obtained. COMPARISON: Chest radiograph dated 10/14/2020 FINDINGS: The lungs remain clear with no focal airspace opacities, pulmonary edema, pleural effusion or pneumot horax. The cardiomediastinal silhouette is normal. IMPRESSION: 1. No acute cardiopulmonary disease. Reviewed, dictated and finalized at location A.
--- NOTE | 2022-04-20 00:40 | ECG_ITS ---
Measurements Intervals [place] Rate: 52 P: -56 WA: 169 QRS: -27 QRSD: 153 T: 22 QT: 456 QTc: 427 Interpretive Statements SINUS BRADYCARDIA BORDERLINE LEFT AXIS DEVIATION [QRS AXIS < -20] RIGHT BUNDLE BRANCH BLOCK [120+ ms QRS DURATION, UPRIGHT V1, 40+ ms S IN I/aVL/V4/V5/V6] COMPARED TO ECG 10/14/2020 21:41:30 HEART RATE REDUCED, NO OTHER DIFFERENCE Electronically Signed On 04-20-2022 7:19:57 CDT by Husam Saldaña M.D.
[2022-04-20] MEDS: ASPIRIN 81 MG CHEWABLE TABLET 324 MG PO (01:11)
[2022-04-20 01:28] LABS: Basophils Percent Auto 0.3 % (0.2-1.2); Eosinophils Absolute Auto 0.1 K/mm3 (0-0.3); Eosinophils Percent Auto 1.4 % (0-4.4); Hematocrit 35.9 % (37.0-47.0); Hemoglobin 12.2 g/dL (12.0-15.0); Immature Granulocyte Absolute 0.02 K/mm3 (0.00-0.031); Immature Granulocyte Percent A 0.3 % (0-0.5); Lymphocytes Absolute Auto 1.34 K/mm3 (0.9-3.2); Lymphocytes Percent Auto 18.6 % (18.3-44.2); Mean Corpuscular Hemoglobin 32.3 pg (26-34); Mean Platelet Volume 9.5 fl (7.4-10.4); Monocytes Absolute Auto 0.5 K/mm3 (0.1-0.6); Monocytes Percent Auto 6.7 % (2.6-8.5); Neutrophils Absolute Auto 5.2 K/mm3 (1.3-6.7); Neutrophils Percent Auto 72.7 % (45.5-73.1); Platelet Count Result 268 k/mm3 (150-375); Red Blood Count 3.78 M/mm3 (4.2-5.4); Red Cell Distribution Width 12.9 % (11.5-14.5); White Blood Count 7.2 K/mm3 (4.5-10.0)
[2022-04-20 01:39] LABS: INR 1.2; Prothrombin Time 14.4 Seconds (11.1-14.7)
[2022-04-20 01:40] LABS: Alanine Aminotransferase 15 U/L (6-35); Albumin Level 3.5 g/dL (3.5-5.1); Alkaline Phosphatase 100 U/L (38-126); Anion Gap 4 mmol/L (8-16); Aspartate Amino Transferase 19 U/L (14-36); Bilirubin,Total 0.4 mg/dL (0.2-1.3); Blood Urea Nitrogen 15 mg/dL (7-17); Calcium 7.3 mg/dL (8.4-10.2); Carbon Dioxide 26 mmol/L (22-30); Chloride 109 mmol/L (98-107); Estimated CRCL calculation 84 ml/min; Estimated Glomerular Filt Rate > 60; Glucose 96 mg/dL (65-110); Lipase 60 U/L (23-300); Potassium 3.2 mmol/L (3.4-5.0); Sodium 139 mmol/L (137-145)
[2022-04-20 01:50] LABS: Troponin I < 0.012 ng/mL (0.000-0.034)
[2022-04-20 02:06] LABS: SARS-CoV-2 RNA PCR Negative
--- NOTE | 2022-04-20 02:10 | ED.GENADULT ---
HPI - General Adult General Chief complaint: Chest Pain Stated complaint: chest pain bradycardia Time Seen by Provider: 04/20/22 00:50 History of Present Illness HPI narrative: Patient is a 61-year-old female who presents the emergency department chief complaint of chest pain and bradycardia. The patient states that recently she was diagnosed with atrial fibrillation and was started on a beta-stan in the 100 mg of metoprolol twice a day and anticoagulant. Patient states she went back and rhythm the reports that today she has noticed that her heart has been beating differently feels as though at times it is beating very slow and feels as though he just does not feel right. Patient states she had a heaviness or tightness in her chest patient states that its not improved by anything or is worsened by. EMS was called and patient was having episodes of heart rate 40s. Related Data Home Medications Medication Instructions Recorded Confirmed levothyroxine 0.112 mcg PO QAM 12/17/19 02/06/22 pravastatin 20 mg tablet 20 mg PO QAM 12/17/19 02/06/22 esomeprazole magnesium 40 mg 40 mg PO QAM 01/04/20 02/06/22 capsule,delayed release (Nexium) losartan 50 mg-hydrochlorothiazide 1 tablet PO QAM 01/04/20 02/06/22 12.5 mg tablet phenazopyridine 200 mg tablet 200 mg PO TID PRN Bladder Spasms 01/04/20 02/06/22 (Pyridium) amlodipine 10 mg tablet 10 mg PO DAILY 01/15/22 02/06/22 aspirin 81 mg tablet,delayed 81 mg PO DAILY 01/15/22 02/06/22 release (Adult Aspirin Regimen) metformin 500 mg tablet 500 mg PO DAILY 01/15/22 02/06/22 zolpidem 5 mg tablet (Ambien) 5 mg PO QHS PRN 01/15/22 02/06/22 Allergies Allergy/AdvReac Type Severity Reaction Status Date / Time acetaminophen Allergy Severe Rash Verified 02/05/22 13:40 adhesive tape Allergy Unknown BLISTERS Verified 02/05/22 13:40 aripiprazole Allergy Unknown Irritable Verified 02/05/22 13:40 morphine Allergy Unknown Hypotension Verified 02/05/22 13:40 NSAIDS (Non-Steroidal Allergy Unknown Rash Verified 02/05/22 13:40 Anti-Inflamma Penicillins Allergy Unknown Hives Verified 02/05/22 13:40 celecoxib [From Celebrex] AdvReac Unknown Nausea and Verified 02/05/22 13:40 Vomiting lisinopril AdvReac Unknown NIGHT COUGH Verified 02/05/22 13:40 Mhyxsvo-NGU-CiP Reductase AdvReac Unknown MUSCLE Verified 02/05/22 13:40 Inhibitor WEAKNESS [Fynohrf-Okb-Wbw Reductase Inhibitor] duloxetine [From Cymbalta] AdvReac Vomiting Verified 02/05/22 13:40 oxycodone [From OxyContin] AdvReac Nausea and Verified 02/05/22 13:40 Vomiting DICLOFENAC SODIUM Allergy Severe Difficulty Uncoded 01/15/22 10:14 Breathing Review of Systems Review of Systems: A 10 system review of systems was completed on the patient and is negative except for what is stated in the HPI. Nursing and ancillary documentation was reviewed. [facility] Past Medical History Medical History Deep vein thrombophlebitis of leg GERD (gastroesophageal reflux disease) Hyperlipidemia Hypertension Migraine Peripheral vascular disease Surgical History Surgical History H/O skin graft right finger x2 History of ankle surgery x4 History of bilateral hip replacements History of hysterectomy Hx of cholecystectomy Hx of tonsillectomy S/P breast biopsy, left x2 S/P cubital tunnel release [place] teeth removed Family History Family History Father Asbestos exposure Kidney disease Hypertension Mother Cerebrovascular accident Lung cancer Sibling Skin cancer Breast cancer Hypertension Sibling Thyroid condition Social History Social History Smoking status: Never smoker Alcohol intake: never Substance use: never Substance use type: does not use
[2022-04-20] MEDS: POTASSIUM CHLORIDE 20 MEQ PACKET (FOR LIQUID) 40 MEQ PO (04:07)
--- NOTE | 2022-04-20 05:43 | PC.NURSE ---
This patient, Leona Pizarro, was admitted to IMU Room 201-01. Patient/family oriented to hospital policies and general routines including ID bracelet, bed and alarms, visiting hours, pain management, procedures, bathroom and other care routines, personal items, smoking policy, room service/diet, and visiting hours. Information on how to activate the Rapid Response Team has been discussed. Patient/Family are encouraged to report perceived risks to care and to ask questions if they do not understand what they are told or what they should do.
--- NOTE | 2022-04-20 06:31 | ADMGEN ---
This patient, Leona Pizarro, was admitted to IMU Room 201-01 at 0440. Patient/family oriented to hospital policies and general routines including ID bracelet, bed and alarms, visiting hours, pain management, procedures, bathroom and other care routines, personal items, smoking policy, room service/diet, and visiting hours. Information on how to activate the Rapid Response Team has been discussed. Patient/Family are encouraged to report perceived risks to care and to ask questions if they do not understand what they are told or what they should do.
[2022-04-20 07:03] LABS: Troponin I < 0.012 ng/mL (0.000-0.034)
[2022-04-20] MEDS: ASPIRIN 81 MG ENTERIC TABLET PO (08:23)
[2022-04-20] MEDS: LEVOTHYROXINE SODIUM 112 MCG TABLET PO (08:23)
[2022-04-20] MEDS: LOSARTAN POTASSIUM 100 MG TABLET PO (08:23)
[2022-04-20] MEDS: PRAVASTATIN SODIUM 20 MG TABLET 40 MG PO (08:23)
[2022-04-20] MEDS: PANTOPRAZOLE 40 MG TABLET PO (08:23)
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
[2022-04-20 10:21] LABS: Magnesium 2.5 mg/dL (1.6-2.3); Potassium 4.7 mmol/L (3.4-5.0)
[2022-04-20] MEDS: APIXABAN 5 MG TABLET PO ×2 (10:27→17:11)
--- NOTE | 2022-04-20 10:53 | EST_ITS ---
Patient Info Name: Leona Pizarro Age: 61 years : 1960 Gender: Female Ht: 68 in Wt: 227 lbs BSA: 2.26 m2 HR: 61 bpm BP: 139 / 81 mmHg Heart Rhythm: Sinus Rhythm Exam Date: 04/20/2022 1:32 PM Exam Location: [facility] Stress Patient Status: Inpatient Admit Date: 04/20/2022 Staff Ordering Physician: Abelardo Aquino MD Attending Provider: JENNA VICTORIA NP Exercise Technologist: Miriam Tavera CT Nurse: JENNA VICTORIA Exam Type: CA stress radha w NM Study Info Indications R07.9 - Chest pain, unspecified A regadenoson stress test was performed. Summary 1. Normal sinus rhythm. 2. Right bundle branch block. 3. No ST segment abnormalities following Lexiscan injection. 4. None. 5. Clinically and electrocardiographically negative Lexiscan stress test. 6. Myocardial perfusion imaging exam to be reported by the Radiology Department. Protocol: Lexiscan Stress ECG Details Stage: REST Duration (min): 1 min : 33 sec HR (bpm): 58 SBP (mmHg): 139 DBP (mmHg): 81 Stage: REST Duration (min): 7 min : 32 sec HR (bpm): 57 SBP (mmHg): 139 DBP (mmHg): 81 Stage: STAGE 1 Duration (min): 1 min : 0 sec HR (bpm): 81 SBP (mmHg): 126 DBP (mmHg): 70 Stage: RECOVERY Duration (min): 1 min : 0 sec HR (bpm): 76 SBP (mmHg): 126 DBP (mmHg): 70 Stage: RECOVERY Duration (min): 2 min : 0 sec HR (bpm): 104 SBP (mmHg): 126 DBP (mmHg): 70 Stage: RECOVERY Duration (min): 3 min : 0 sec HR (bpm): 69 SBP (mmHg): 128 DBP (mmHg): 69 Stage: RECOVERY Duration (min): 4 min : 0 sec HR (bpm): 68 SBP (mmHg): 128 DBP (mmHg): 69 Stage: RECOVERY Duration (min): 4 min : 50 sec HR (bpm): 68 SBP (mmHg): 136 DBP (mmHg): 66 Rest HR: 57 bpm Peak HR: 104 bpm Rest Sys BP: 139 mmHg Peak Sys BP: 136 mmHg Max Pred HR: 160 bpm % Max Pred HR: 65 % Target HR: 136 bpm Max RPP: 14,144 bpm*mmHg Termination Reason: Completed protocol Cardiac Symptoms: None Total Time: 1 min : 0 sec Rest [place] BP: 81 mmHg Peak [place] BP: 66 mmHg Total Dose: 0.4 mg Resting ECG Normal sinus rhythm. Right bundle branch block. Stress ECG No ST segment abnormalities following Lexiscan injection. Arrhythmias None. Report Signatures
--- NOTE | 2022-04-20 17:01 | PM.DS ---
DS: Admitting Diagnosis Discharge Date 04/20/22 Admitting Diagnosis Chest pain DS: Discharge Diagnosis Discharge Diagnosis (1) Atypical chest pain: Code(s): R07.89 - Other chest pain Status: Acute (2) Atrial fibrillation: Code(s): I48.91 - Unspecified atrial fibrillation Status: Acute (3) Bradycardia: Code(s): R00.1 - Bradycardia, unspecified Status: Acute (4) RUPAL (obstructive sleep apnea): Code(s): G47.33 - Obstructive sleep apnea (adult) (pediatric) Status: Acute (5) Hypertension: Code(s): I10 - Essential (primary) hypertension Status: Acute (6) Hypokalemia: Code(s): E87.6 - Hypokalemia Status: Acute DS: Summary Hospital Course Reason for hospitalization: 61yo female with hx of HTN, AFib and untreated RUPAL here for chest pain and bradycardia. Please see H&P for details. Hospital Course: Patient presented to the ED for complaint of chest pain. Her vital signs were stable except for heart rate of 50. EKG showed sinus bradycardia rate of 52, LAD and right bundle branch block but no significant change from an EKG in 2019. CMP and CBC were normal except for slightly low potassium. Troponin was negative times 2. Chest x-ray was clear. Potassium was replaced. She was given aspirin. She was admitted to IMU. Her bradycardia improved. At rest her heart rate was in the 50s to 60 range. When active, heart rate climbed appropriately to 70-80 range. Metoprolol was held. Echocardiogram showed EF of 55-60%. Normal diastolic function. She underwent Lexiscan stress test that was clinically and electrocardiographically negative. Nuclear medicine portion showed normal myocardial perfusion at rest and during stress. Her EF was greater than 70%. TSH was normal. She overall did well. She was able be discharged home on 04/20/2022. I did speak with her flight control tower operator later in the day and he was updated with the above mentioned results. Status at Discharge Cognitive/behavioral status at discharge: Stable Time Spent with Patient Time attestation: Total time spent providing and/or coordinating discharge services: 50 minutes Time spent: Greater than 30 minutes Exam Narrative: AF 98.4 138/68 50 16 100% ra Gen - well-nourished, well-developed female in no acute respiratory distress who is nontoxic-appearing lying semi recumbent in bed HEENT - normocephalic. Atraumatic. Pupils equal round and reactive. Extraocular motions intact. Sclera clear and anicteric. Nares patent. Oropharynx was crowded. No oral lesions. Moist mucous membranes. Tongue was midline. Palate leticia symmetrically. No facial asymmetry. Neck - neck was supple. No dominant adenopathy, thyromegaly or masses. 2+ carotid upstrokes without bruits. Chest - lungs are clear to auscultation bilaterally. No wheezes or crackles. Breast exam was deferred. CV - heart was bradycardic but regular. S1-S2. No murmurs gallops or rubs. Tele showing occasional PVCs Abd - abdomen was soft. Nontender. Nondistended. Positive bowel sounds. No organomegaly or masses. Ext - no clubbing, cyanosis or edema. 2+ DP pulses bilaterally. Neuro - patient is alert and oriented x4. Strength is 5/5 in both upper and lower extremities. Cranial nerves 2-12 are intact. Speech is clear. Psych - normal mood and affect. Patient is pleasant and cooperative. Skin - warm and dry. No rashes noted. DS: Data Data Completed and Pending Labs on day of discharge: Labs from last 24 hours 04/20/22 04/20/22 04/20/22 06:31 06:31 06:31 WBC RBC Hgb Hct MCV MCH MCHC RDW Plt Count MPV Immature Gran % (Auto) Neut % (Auto) Lymph % (Auto) [place] % (Auto) Eos % (Auto) Baso % (Auto) Lymph # (Auto) [place] # (Auto) Eos # (Auto) Baso # (Auto) Abs Immat Gran (auto) Absolute Neuts (auto) Absolute Nucleated RBC Nucleated RBC % PT IN
== END 2022-04-20 17:47 | disposition home or self-care (01) ==
LOC: ANHED 02:37 → ANHIMU 04:38
PROVIDERS: Admitting Provider Internal Medicine; Emergency Provider Emergency Medicine; PCP Internal Medicine; Visit Provider Internal Medicine
DX: R07.89 Other chest pain (principal); R00.1 Bradycardia, unspecified; I48.91 Unspecified atrial fibrillation; E87.6 Hypokalemia; Z79.82 Long term (current) use of aspirin; Z86.718 Personal history of other venous thrombosis and embolism; K21.9 Gastro-esophageal reflux disease without esophagitis; I10 Essential (primary) hypertension; E78.5 Hyperlipidemia, unspecified; Z96.643 Presence of artificial hip joint, bilateral; G47.33 Obstructive sleep apnea (adult) (pediatric); Z20.822 Contact with and (suspected) exposure to COVID-19
CPT/HCPCS: 36415; 71045; 78452; 80053; 83690; 83735; 84132; 84443; 84484; 85025; 85610; 85730; 93005; 93017; 93306; 99285; A9270; A9502; C9803; G0378; J2785; U0003; U0005

== ENCOUNTER 2022-10-01 11:00 | Outpatient (RCR) | payer OTHER, MEDICARE, SELFPAY ==
--- NOTE | 2022-09-09 11:37 | PTOPEVAL1 ---
Assessment and note entered by Velma Vale, PT Evaluation Information Assessment Status Evaluation Diagnosis overpronation L ankle; trochanteric pain syndrome -tear of ant glut med R Onset 09-16-21 Subjective Information is going to have surgery on her R hip, not yet scheduled, but probably Nov--repair of R hip muscle tear; fell in Aug 2021- fell and fracture L ankle had ORIF; had R hip pain, further testing had tear; want to work on her R hip first and do ankle treatment later; Reported Pain Level Pain Score Self Report Additional Pain Score Comments pain range of R hip 6-8/10; cramp, stabbing, romero use cane all the time; stairs are really hard to do; reported walk tolerance 10-15 min; lie on R side about 5 min at most due to pain; decrease pain with heating pad and sitting with legs extended and sometime R hip IR; sleep is disrupted due to all her orthopedic issues--back pain, neck pain, R hip pain, L ankle pain; Assessment PT Clinical Summary Hillary has the diagnosis of R hip muscle tear-- to have surgery in Nov and L ankle pain,prev ORIF. She wants to address the R hip first. She has decreased walking and activity level due to back pain, R hip pain, L ankle pain. With the evaluation, she has decreased strength of R hip with 2 minute walking distance of 150' with 2 rest breaks due to pain R hip, with poor walking pattern; using the wheeled walker improves her gait pattern and she reports less pain and easier to walk; Skilled PT services are indicated for therapeutic exercises on land and in the water, to increase the strength of her R hip; with the water to ease her ability to move and decrease pain of hip and back. Modalities PRN on land to decrease pain with education for home exercises. Plan of Care Interventions Aquatic Therapy,Electrical Stimulation,Gait Training,Hot Pack/Cold Pack,Manual Therapy,Neuro Re-education,Patient/Caregiver Educaton,Therapeutic Activities,Therapeutic Exercise,Ultrasound PT Services Indicated Yes Treatment Frequency and 2x/wk for 4 weeks Duration These treatments will address the objective and functional deficits as defined above. The patient will be advanced safely and appropriately in order for the patient to progress towards his/her prior level of function. Additi
--- NOTE | 2022-10-13 14:56 | PCPTNOTE ---
pt called and canceled today's reeval;
--- NOTE | 2022-11-02 13:53 | PCPTNOTE ---
PHYSICAL THERAPY DISCHARGE 11-02-22 Attending Provider: Ish Freedman MD Patient:Leona Pizarro Date of :1960 Ms. Pizarro has not returned for any further treatments since 10/01/2022, therefore she will be discharged at this time. She received 6 PT sessions, from September 09 to October 01, for L ankle pain and L trochanteric pain. Then, she stopped attending therapy. The goals were not addressed. Thank you for referring this patient to [facility].
== END 2022-11-23 14:02 | disposition home or self-care (01) ==
LOC: ANHPT 11:00
PROVIDERS: PCP Internal Medicine; Visit Provider Orthopaedic Surgery
DX: M70.61 Trochanteric bursitis, right hip (principal)
CPT/HCPCS: 97014; 97110; 97113; 97140; 97162; 97530; G0283

== ENCOUNTER 2022-10-04 17:32 | Emergency (ER) | payer OTHER, MEDICARE, SELFPAY ==
--- NOTE | ~2022-10-04 | XR_ITS ---
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 RESULT: Lines, tubes, and devices: Cholecystectomy clips. Lungs and pleura: Clear. Minimal bibasilar atelectasis/scarring. Cardiomediastinal silhouette: Stable. Other: No acute osseous or upper abdominal finding. IMPRESSION: No acute cardiopulmonary process. Reviewed, dictated and finalized at location K. REMENT MANAGER
[2022-10-04 17:42] VITALS: BP 122/77; PULSE 82; RESP 17; O2SAT 96
[2022-10-04 17:47] VITALS: BP 140/68; PULSE 79; RESP 16; TEMP 36.8; O2SAT 96; O2SAT 97
--- NOTE | 2022-10-04 18:16 | ED.GENADULT ---
HPI - General Adult General Chief complaint: Shortness of Breath/Dyspnea Stated complaint: SOB Time Seen by Provider: 10/04/22 17:37 History of Present Illness HPI narrative: 61-year-old female here for evaluation of cough, congestion, generalized fatigue and weakness for the past day. Patient states that she has felt ill for the past several days but her symptoms acutely worsened last night when she became short of breath. She denies positive sick contacts. No fevers, chest pain, leg swelling. Related Data Home Medications Medication Instructions Recorded Confirmed levothyroxine 0.112 mcg PO QAM 12/17/19 04/20/22 pravastatin 20 mg tablet 40 mg PO QAM 12/17/19 04/20/22 esomeprazole magnesium 40 mg 20 mg PO QAM 01/04/20 04/20/22 capsule,delayed release (Nexium) aspirin 81 mg tablet,delayed 81 mg PO DAILY 01/15/22 04/20/22 release (Adult Aspirin Regimen) apixaban 5 mg tablet (Eliquis) 1 tablet PO BID 04/20/22 04/20/22 losartan 100 mg tablet 100 mg PO DAILY 04/20/22 04/20/22 Allergies Allergy/AdvReac Type Severity Reaction Status Date / Time acetaminophen Allergy Severe Rash Verified 10/04/22 19:02 adhesive tape Allergy Unknown BLISTERS Verified 10/04/22 19:02 aripiprazole Allergy Unknown Irritable Verified 10/04/22 19:02 morphine Allergy Unknown Hypotension Verified 10/04/22 19:02 NSAIDS (Non-Steroidal Allergy Unknown Rash Verified 10/04/22 19:02 Anti-Inflamma Penicillins Allergy Unknown Hives Verified 10/04/22 19:02 celecoxib [From Celebrex] AdvReac Unknown Nausea and Verified 10/04/22 19:02 Vomiting lisinopril AdvReac Unknown NIGHT COUGH Verified 10/04/22 19:02 Lutatmw-QSD-KoG Reductase AdvReac Unknown MUSCLE Verified 10/04/22 19:02 Inhibitor WEAKNESS [Zfknfaf-Lnf-Bjl Reductase Inhibitor] duloxetine [From Cymbalta] AdvReac Vomiting Verified 10/04/22 19:02 oxycodone [From OxyContin] AdvReac Nausea and Verified 10/04/22 19:02 Vomiting DICLOFENAC SODIUM Allergy Severe Difficulty Uncoded 10/04/22 19:02 Breathing [facility] Past Medical History Medical History (Updated 10/04/22 @ 19:29 by Malinda Villeda PA-C) Atrial fibrillation Deep vein thrombophlebitis of leg GERD (gastroesophageal reflux disease) Hyperlipidemia Hypertension Hypothyroidism Ashley's Migraine RUPAL (obstructive sleep apnea) Peripheral vascular disease iliac stent 2020 Varicose vein of leg Surgical History Surgical History H/O skin graft right finger x2 History of ankle surgery x4 History of bilateral hip replacements History of hysterectomy Hx of cholecystectomy Hx of tonsillectomy S/P breast biopsy, left x2 S/P cubital tunnel release [place] teeth removed Family History Family History Father Asbestos exposure Kidney disease Hypertension Mother Cerebrovascular accident Lung cancer Sibling Skin cancer Breast cancer Hypertension Sibling Thyroid condition Social History Social History (Updated 04/20/22 @ 09:59 by Abelardo Aquino MD) Social History: Lifelong nonsmoker. Denies alcohol or drug use. Lives with the . Full code. She nominates her to be the individual would make medical decisions for her if she is unable. Smoking status: Never smoker Alcohol intake: never Substance use: never Substance use type: does not use Gender identity (if verbalized by the patient): Female Spiritual care concerns: No Course Vital Signs Vital signs: Vital Signs Pulse Rate 82 10/04/22 17:42 Respiratory Rate 17 10/04/22 17:42 Blood Pressure 122/77 10/04/22 17:42 Pulse Oximetry 96 10/04/22 17:42 Oxygen Delivery Room Air 10/04/22 17:42 Temperature 98.3 F 10/04/22 17:47 Pulse Rate 67 10/04/22 19:29 Respiratory Rate 21 H 10/04/22 19:29 Blood Pressure 114/67 10/04/22 19:29 Pulse Oximet
--- NOTE | 2022-10-04 18:17 | ECG_ITS ---
Measurements Intervals [place] Rate: 66 P: -1 RI: 225 QRS: -23 QRSD: 162 T: 23 QT: 405 QTc: 427 Interpretive Statements SINUS RHYTHM WITH FIRST DEGREE AV BLOCK BORDERLINE LEFT AXIS DEVIATION [QRS AXIS < -20] RIGHT BUNDLE BRANCH BLOCK [120+ ms QRS DURATION, UPRIGHT V1, 40+ ms S IN I/aVL/V4/V5/V6] COMPARED TO ECG 04/20/2022 00:47:08 SINUS RHYTHM NOW PRESENT FIRST DEGREE AV BLOCK NOW PRESENT Electronically Signed On 10-05-2022 6:20:27 [employer]ATHER by Husam Saldaña M.D.
[2022-10-04 18:39] LABS: Basophils Percent Auto 0.3 % (0.2-1.2); Eosinophils Percent Auto 0.1 % (0-4.4); Hematocrit 39.2 % (37.0-47.0); Immature Granulocyte Absolute 0.02 K/mm3 (0.00-0.031); Immature Granulocyte Percent A 0.3 % (0-0.5); Lymphocytes Absolute Auto 1.01 K/mm3 (0.9-3.2); Lymphocytes Percent Auto 14.2 % (18.3-44.2); Mean Corpuscular HGB Conc 33.2 g/dl (32-36); Mean Corpuscular Hemoglobin 31.7 pg (26-34); Mean Corpuscular Volume 95.6 fl (80-100); Mean Platelet Volume 9.1 fl (7.4-10.4); Monocytes Absolute Auto 0.5 K/mm3 (0.1-0.6); Monocytes Percent Auto 6.6 % (2.6-8.5); Neutrophils Absolute Auto 5.6 K/mm3 (1.3-6.7); Neutrophils Percent Auto 78.5 % (45.5-73.1); Platelet Count Result 254 k/mm3 (150-375); White Blood Count 7.1 K/mm3 (4.5-10.0)
[2022-10-04 18:49] LABS: Alanine Aminotransferase 23 U/L (6-35); Albumin Level 4.4 g/dL (3.5-5.1); Alkaline Phosphatase 86 U/L (38-126); Anion Gap 6 mmol/L (8-16); Aspartate Amino Transferase 23 U/L (14-36); Bilirubin,Total 0.3 mg/dL (0.2-1.3); Blood Urea Nitrogen 17 mg/dL (7-17); Calcium 8.5 mg/dL (8.4-10.2); Carbon Dioxide 29 mmol/L (22-30); Chloride 103 mmol/L (98-107); Estimated CRCL calculation 74 ml/min; Estimated Glomerular Filt Rate > 60; Glucose 120 mg/dL (65-110); Potassium 3.8 mmol/L (3.4-5.0); Sodium 138 mmol/L (137-145)
[2022-10-04 19:03] VITALS: PULSE 69
[2022-10-04 19:04] VITALS: O2SAT 98
[2022-10-04 19:11] LABS: Free T4 Free Thyroxine 1.19 ng/mL (0.78-2.19)
[2022-10-04 19:15] LABS: Influenza A QL RT-PCR Positive (Negative); Influenza B QL RT-PCR Negative (Negative); RSV RNA, RT-PCR Negative (Negative); SARS-CoV-2 RNA PCR Negative
[2022-10-04 19:29] VITALS: BP 114/67; PULSE 67; RESP 21; O2SAT 98
== END 2022-10-04 19:40 | disposition home or self-care (01) ==
PROVIDERS: Emergency Provider Physician Assistant
DX: J10.1 Influenza due to other identified influenza virus with other respiratory manifestations (principal); Z20.822 Contact with and (suspected) exposure to COVID-19; I48.91 Unspecified atrial fibrillation; E78.5 Hyperlipidemia, unspecified; I10 Essential (primary) hypertension; I73.9 Peripheral vascular disease, unspecified; E06.3 Autoimmune thyroiditis; K21.9 Gastro-esophageal reflux disease without esophagitis; G47.33 Obstructive sleep apnea (adult) (pediatric); Z96.643 Presence of artificial hip joint, bilateral; Z90.710 Acquired absence of both cervix and uterus; Z86.718 Personal history of other venous thrombosis and embolism; Z79.01 Long term (current) use of anticoagulants; Z79.82 Long term (current) use of aspirin; I44.0 Atrioventricular block, first degree; I45.10 Unspecified right bundle-branch block
CPT/HCPCS: 36415; 71046; 80053; 84439; 84443; 85025; 85380; 87637; 93005; 99283

== ENCOUNTER 2022-10-10 09:05 | Emergency (ER) | payer OTHER, MEDICARE, SELFPAY ==
[2022-10-10] VITALS (19 sets, daily range): BP systolic 140–189; BP diastolic 69–81; PULSE 63–89; RESP 14–27; TEMP 36.6; O2SAT 96–99
--- NOTE | ~2022-10-10 | CT_ITS ---
EXAMINATION: CTA chest PE protocol DATE: 10/10/2022 13:08 INDICATION: Shortness of breath TECHNIQUE: Computed tomography angiography (CTA) of the chest was performed with 100 mL Omnipaque-350 intravenous contrast timed to evaluate the pulmonary arteries. Coronal maximum intensity projection 3D-reconstructions were created by the technologist. The dose-length product (DLP) was 450.22 mGy-cm. Automated exposure control and iterative reconstruction technique were employed. COMPARISON: 01/29/2022 FINDINGS: The pulmonary arteries are well-opacified. No pulmonary embolism is identified. Sensitivity is mildly limited by respiratory motion artifact. No pathologically enlarged thoracic lymph nodes ar e identified. The heart size is normal. There is mild dependent atelectasis. No pleural effusion or p neumothorax. The gallbladder is surgically absent. There is focal fatty infiltration of the liver ángel r the ligamentum teres. IMPRESSION: 1. No pulmonary embolism or acute cardiopulmonary abnormality, sensitivity slightly limited by respir atory motion artifact. Reviewed, dictated and finalized at location A. RWRITING SPECIALIST IMPRESSION: 1. No pulmonary embolism or acute cardiopulmonary abnormality, sensitivity slig htly limited by respiratory motion artifact.
--- NOTE | ~2022-10-10 | XR_ITS ---
EXAMINATION: XR chest 2V DATE: 10/10/2022 11:21 INDICATION: Shortness of breath, influenza TECHNIQUE: AP and lateral views of the chest are obtained. COMPARISON: 10/04/2022 FINDINGS: The lungs are free of acute opacities. No pleural effusion or pneumothorax. The cardiomedia stinal silhouette is normal. There is moderate thoracic spondylosis. IMPRESSION: 1. No acute cardiopulmonary abnormality. Reviewed, dictated and finalized at location A. ER FISH
--- NOTE | 2022-10-10 09:10 | ECG_ITS ---
Measurements Intervals [place] Rate: 75 P: 96 AK: 221 QRS: -26 QRSD: 169 T: 27 QT: 412 QTc: 462 Interpretive Statements SINUS RHYTHM WITH FIRST DEGREE AV BLOCK RIGHT BUNDLE BRANCH BLOCK COMPARED TO ECG 10/04/2022 19:11:41 NO SIGNIFICANT CHANGES Electronically Signed On 10-10-2022 16:57:13 VULCANIZER by Olya Martinez M.D.
[2022-10-10 11:53] LABS: Basophils Percent Auto 0.4 % (0.2-1.2); Hematocrit 39.7 % (37.0-47.0); Hemoglobin 13.9 g/dL (12.0-15.0); Immature Granulocyte Absolute 0.01 K/mm3 (0.00-0.031); Immature Granulocyte Percent A 0.2 % (0-0.5); Lymphocytes Absolute Auto 0.88 K/mm3 (0.9-3.2); Lymphocytes Percent Auto 19.3 % (18.3-44.2); Mean Corpuscular Hemoglobin 31.2 pg (26-34); Mean Corpuscular Volume 89.2 fl (80-100); Mean Platelet Volume 8.9 fl (7.4-10.4); Monocytes Absolute Auto 0.3 K/mm3 (0.1-0.6); Monocytes Percent Auto 7.4 % (2.6-8.5); Neutrophils Absolute Auto 3.3 K/mm3 (1.3-6.7); Neutrophils Percent Auto 72.7 % (45.5-73.1); Platelet Count Result 225 k/mm3 (150-375); Red Blood Count 4.45 M/mm3 (4.2-5.4); Red Cell Distribution Width 13.5 % (11.5-14.5); White Blood Count 4.6 K/mm3 (4.5-10.0)
[2022-10-10 12:08] LABS: Alanine Aminotransferase 29 U/L (6-35); Albumin Level 4.7 g/dL (3.5-5.1); Alkaline Phosphatase 106 U/L (38-126); Anion Gap 9 mmol/L (8-16); Aspartate Amino Transferase 46 U/L (14-36); Bilirubin,Total 0.7 mg/dL (0.2-1.3); Blood Urea Nitrogen 7 mg/dL (7-17); Carbon Dioxide 28 mmol/L (22-30); Chloride 100 mmol/L (98-107); Estimated CRCL calculation 74 ml/min; Estimated Glomerular Filt Rate > 60; Glucose 106 mg/dL (65-110); Potassium 2.9 mmol/L (3.4-5.0); Sodium 137 mmol/L (137-145)
--- NOTE | 2022-10-10 12:32 | ED.GENADULT ---
HPI - General Adult General Chief complaint: Shortness of Breath/Dyspnea Stated complaint: severe shortness of breath Time Seen by Provider: 10/10/22 11:47 History of Present Illness HPI narrative: 61-year-old female with past medical history of A. fib, DVT, GERD, HLD, HTN, hypothyroidism who was recently diagnosed with influenza A presents to our department for evaluation of shortness of breath and pain in a single rib on the left side. Patient has been coughing constantly and thinks she heard a pop in this rib and feels that it may be broken. Patient takes Eliquis daily. Related Data Home Medications Medication Instructions Recorded Confirmed levothyroxine 0.112 mcg PO QAM 12/17/19 04/20/22 pravastatin 20 mg tablet 40 mg PO QAM 12/17/19 04/20/22 esomeprazole magnesium 40 mg 20 mg PO QAM 01/04/20 04/20/22 capsule,delayed release (Nexium) aspirin 81 mg tablet,delayed 81 mg PO DAILY 01/15/22 04/20/22 release (Adult Aspirin Regimen) apixaban 5 mg tablet (Eliquis) 1 tablet PO BID 04/20/22 04/20/22 losartan 100 mg tablet 100 mg PO DAILY 04/20/22 04/20/22 Allergies Allergy/AdvReac Type Severity Reaction Status Date / Time acetaminophen Allergy Severe Rash Verified 10/10/22 09:05 diclofenac Allergy Severe Difficulty Verified 10/10/22 12:33 Breathing adhesive tape Allergy Unknown BLISTERS Verified 10/10/22 09:05 aripiprazole Allergy Unknown Irritable Verified 10/10/22 09:05 morphine Allergy Unknown Hypotension Verified 10/10/22 09:05 NSAIDS (Non-Steroidal Allergy Unknown Rash Verified 10/10/22 09:05 Anti-Inflamma Penicillins Allergy Unknown Hives Verified 10/10/22 09:05 celecoxib [From Celebrex] AdvReac Unknown Nausea and Verified 10/10/22 09:05 Vomiting lisinopril AdvReac Unknown NIGHT COUGH Verified 10/10/22 09:05 Mpjujna-WAU-RnZ Reductase AdvReac Unknown MUSCLE Verified 10/10/22 09:05 Inhibitor WEAKNESS [Nuotzod-Lvc-Ste Reductase Inhibitor] duloxetine [From Cymbalta] AdvReac Vomiting Verified 10/10/22 09:05 oxycodone [From OxyContin] AdvReac Nausea and Verified 10/04/22 19:02 Vomiting Review of Systems Review of Systems: CONSTITUTIONAL: Denies fever, chills, or sweats. EYES: Denies visual changes, redness, or discharge. ENT: Denies rhinorrhea, congestion, sore throat, or otalgia. CARDIOVASCULAR: Denies chest pain, palpitations, or edema. RESPIRATORY: Denies cough or dyspnea. GASTROINTESTINAL: Denies abdominal pain, nausea, vomiting, or diarrhea. GENITOURINARY: Denies dysuria or hematuria. SKIN: Denies rash or itching. MUSCULOSKELETAL: Denies back pain, joint pain, or myalgia. NEUROLOGIC: Denies headache, numbness, or weakness. PSYCHIATRIC: Denies anxiety or depression. [facility] Past Medical History Medical History Atrial fibrillation Deep vein thrombophlebitis of leg GERD (gastroesophageal reflux disease) Hyperlipidemia Hypertension Hypothyroidism Ashley's Migraine RUPAL (obstructive sleep apnea) Peripheral vascular disease iliac stent 2020 Varicose vein of leg Surgical History Surgical History H/O skin graft right finger x2 History of ankle surgery x4 History of bilateral hip replacements History of hysterectomy Hx of cholecystectomy Hx of tonsillectomy S/P breast biopsy, left x2 S/P cubital tunnel release [place] teeth removed Family History Family History Father Asbestos exposure Kidney disease Hypertension Mother Cerebrovascular accident Lung cancer Sibling Skin cancer Breast cancer Hypertension Sibling Thyroid condition Social History Social History Social History: Lifelong nonsmoker. Denies alcohol or drug use. Lives with the . Full code. She nominates her to be the individua
[2022-10-10] MEDS: ALBUTEROL SULFATE NEB 2.5 MG/3 ML INH 5 MG INHALATION (12:37)
[2022-10-10] MEDS: POTASSIUM CHLORIDE INJ 40 MEQ in SODIUM CHLORIDE 0.9% IV 500 ML 130 MEQ IVPB (13:10)
[2022-10-10] MEDS: DEXAMETHASONE 2 MG TABLET 10 MG PO (13:11)
[2022-10-10] MEDS: POTASSIUM CHLORIDE 20 MEQ TABLET 40 MEQ (14:52)
== END 2022-10-10 15:30 | disposition home or self-care (01) ==
PROVIDERS: Emergency Provider Emergency Medicine; PCP Emergency Medicine
DX: J45.21 Mild intermittent asthma with (acute) exacerbation (principal); E87.6 Hypokalemia; J10.1 Influenza due to other identified influenza virus with other respiratory manifestations; I48.91 Unspecified atrial fibrillation; E78.5 Hyperlipidemia, unspecified; E06.3 Autoimmune thyroiditis; I73.9 Peripheral vascular disease, unspecified; G47.33 Obstructive sleep apnea (adult) (pediatric); K21.9 Gastro-esophageal reflux disease without esophagitis; Z96.643 Presence of artificial hip joint, bilateral; Z90.710 Acquired absence of both cervix and uterus; Z86.718 Personal history of other venous thrombosis and embolism; Z79.01 Long term (current) use of anticoagulants; Z79.82 Long term (current) use of aspirin; I44.0 Atrioventricular block, first degree; I45.10 Unspecified right bundle-branch block
CPT/HCPCS: 36415; 71046; 71275; 80053; 85025; 93005; 94640; 96365; 96366; 99284; A9270; J3480; J7040; J8540; Q9967

== ENCOUNTER 2022-10-14 12:19 | Outpatient (CLI) | payer OTHER, MEDICARE, SELFPAY | END 2022-10-14 12:20 | disposition home or self-care (01) | PROVIDERS: PCP Emergency Medicine; Visit Provider Orthopaedic Surgery | DX: M25.559 Pain in unspecified hip (principal); Z01.818 Encounter for other preprocedural examination | CPT/HCPCS: 87081 ==

== ENCOUNTER 2022-11-04 00:58 | Day surgery (SDC) | payer OTHER, MEDICARE, SELFPAY ==
[2022-10-13 10:03] VITALS: BMI 35.5
--- NOTE | 2022-10-13 10:18 | PC.NURSE ---
Addendum entered by Venice John RN 10/29/22 15:15: PT TO ARRIVE AT 1000 ON 11/04/22 FOR SURGERY AT 1200. Original Note: Report to the Outpatient Waiting Room, entrance under the green pavilion located off [facility], at time 10:30 on date 10/28/22. Planned Procedure Time: 12:30. Time changes happen often and if your time is changed the preop area will call you the afternoon before. - You and your visitor will be asked to self-screen and do not enter if you have any COVID symptoms. - Only one visitor is requested with a max of two and NO children visitors are allowed at this time. - The patient visitor may be requested to leave or wait in car when not with patient due to distancing restrictions. - A mask is REQUIRED within the hospital. Patients may have clear liquids (water, carbonated beverages, clear teas, apple juice) until 3 hours prior to surgery (9:30) with a maximum of 20 ounces. - No food from midnight until time of surgery Take the following medications with a SIP of water the morning of surgery: ALBUTEROL, AMLODIPINE, LEVOTHYROXINE Medications to discontinue per physician: ASPIRIN, ELIQUIS Date to take last dose: ASPIRIN 7 DAYS PRE-OP, ELIQUIS 72 HRS PRE-OP (PER PT PAPERWORK FROM OFFICE) Please no make-up, nail yemeni, hairspray, perfume, deodorant, or body powder the day of surgery. No jewelry (including any body piercings) or valuables the day of surgery, leave them at home. Please take a shower or bath the night before, or the morning of, surgery with an antibacterial soap. Wear comfortable, loose fitting clothing. - Jewelry must be removed prior to entering the operating room. Rings and piercings that are not removed may be cut off. - The hospital will not accept responsibility for valuables. - Please leave all valuables, including medications, at home the day of surgery. If you are going home after surgery, a licensed tier truck driver must drive you home. - NO public transportation without another adult if you receive anesthesia. - We recommend that an adult stay with you for 24 hours following discharge. - We also recommend that you do not drive, make important decision, drink alcoholic beverages, or take any drugs that were not prescribed by your health care provider for at least 24 hours after your discharge time. Follow any additional instructions given to you from your surgeon. If you or anyone in your household have experienced Covid symptoms in the past week, please notify your surgeon or the nurse liaison at the phone number below for possible testing. Telephone instructions given to LATA COOPER and asked if any additional questions and then verbalized understanding. Patient advised to call surgeon office or pre surgery nurse liaison [phone] if any additional questions.
--- NOTE | 2022-10-22 10:04 | PM.IMHP ---
H&P: HPI History of Present Illness Date/Time: 10/22/22 10:04 Chief Complaint: Abductor tendon avulsion Narrative: 61-year-old female who presents today for repair of her right abductor tendon avulsion. Her initial injury happened in August of 2021. She slipped on a wet surface causing her have a violent abduction to the right hip. She sustained an ankle fracture at that time was being treated for this at a different facility. She has noticed ever since this fall that she has had pain and weakness in the lateral aspect of the right hip. She did have her hip replaced in the past through an anterior lateral incision. She had uneventful recovery and was doing well up until this injury little more than a year ago. She had a recent MRI scan of the hip which showed avulsion of the anterior 50% of the gluteus medius and minimus tendons. MRI scans showed atrophy but no fatty infiltration of the muscle. It was felt that this was repairable given the MRI findings. Patient did go through therapy without improvement of her symptoms. She feels at this point she would like to proceed with surgical repair of the tendons. Review of Systems Review of Systems: All systems reviewed & are unremarkable except as noted in HPI and below PMFSH Past Medical History Medical History Atrial fibrillation Deep vein thrombophlebitis of leg GERD (gastroesophageal reflux disease) Hyperlipidemia Hypertension Hypothyroidism Ashley's Migraine RUPAL (obstructive sleep apnea) Peripheral vascular disease iliac stent 2020 Varicose vein of leg Surgical History Surgical History H/O skin graft right finger x2 History of ankle surgery x4 History of bilateral hip replacements History of hysterectomy Hx of cholecystectomy Hx of tonsillectomy S/P breast biopsy, left x2 S/P cubital tunnel release [place] teeth removed Family History Family History Father Asbestos exposure Kidney disease Hypertension Mother Cerebrovascular accident Lung cancer Sibling Skin cancer Breast cancer Hypertension Sibling Thyroid condition Social History Social History Social History: Lifelong nonsmoker. Denies alcohol or drug use. Lives with the . Full code. She nominates her to be the individual would make medical decisions for her if she is unable. Smoking status: Never smoker Second hand tobacco smoke exposure: No Alcohol intake: never Substance use: never Substance use type: does not use Gender identity (if verbalized by the patient): Female Spiritual care concerns: No Meds Home Medications and Allergies Home Medications Medication Instructions Recorded Confirmed Type levothyroxine 0.112 mcg PO QAM 12/17/19 10/13/22 History aspirin 81 mg tablet,delayed 81 mg PO DAILY 01/15/22 10/13/22 History release (Adult Aspirin Regimen) apixaban 5 mg tablet (Eliquis) 1 tablet PO BID 04/20/22 10/13/22 History losartan 100 mg tablet 100 mg PO DAILY 04/20/22 10/13/22 History benzonatate 100 mg capsule 100 mg PO BID PRN cough #20 caps 10/04/22 10/13/22 Rx albuterol sulfate 90 mcg/actuation 1 inh inhalation QID #8.5 grams 10/10/22 10/13/22 Rx aerosol inhaler amlodipine 10 mg tablet 10 mg PO DAILY 10/13/22 10/13/22 History benzonatate 100 mg capsule 100 mg PO TID #21 caps 10/13/22 Rx esomeprazole magnesium 40 mg 20 mg PO QAM #90 caps 10/13/22 Rx capsule,delayed release (Nexium) rosuvastatin 10 mg tablet 10 mg PO DAILY 10/13/22 10/13/22 History tizanidine 2 mg tablet 2 mg PO Q6H PRN Muscle Spasm 10/13/22 10/13/22 History Allergies Allergy/AdvReac Type Severity Reaction Status Date / Time acetaminophen Allergy Severe Rash Verified 10/13/22 09:58 diclofenac Allergy Severe Difficulty Verified
--- NOTE | 2022-10-27 13:08 | WPDANESEPPF ---
Anes - Initial Pre Proc Eval Procedure: Operation Date: 10/28/22 11:30 Proposed Procedures p Repair Abductor Avulsion Right Hip - Ish Freedman MD Date/Time: 10/27/22 13:08 Surgeon: Ish Freedman MD Pre Op Diagnosis: Rt Hip Abductor Tendon Avulsion Patient Data Age: 61 Gender: F Height: 1.73 m Weight: 106 kg Allergies Allergy/AdvReac Type Severity Reaction Status Date / Time acetaminophen Allergy Severe Rash Verified 10/13/22 09:58 diclofenac Allergy Severe Difficulty Verified 10/13/22 09:58 Breathing adhesive tape Allergy Unknown BLISTERS Verified 10/13/22 09:58 aripiprazole Allergy Unknown Irritable Verified 10/13/22 09:58 morphine Allergy Unknown Hypotension Verified 10/13/22 09:58 NSAIDS (Non-Steroidal Allergy Unknown Rash Verified 10/13/22 09:58 Anti-Inflamma Penicillins Allergy Unknown Hives Verified 10/13/22 09:58 celecoxib [From Celebrex] AdvReac Unknown Nausea and Verified 10/13/22 09:58 Vomiting lisinopril AdvReac Unknown NIGHT COUGH Verified 10/13/22 09:58 Zfymktq-[id number]-XiA Reductase AdvReac Unknown MUSCLE Verified 10/13/22 09:58 Inhibitor WEAKNESS [Csuryff-Ogw-Wgz Reductase Inhibitor] citalopram [From Celexa] AdvReac Nausea and Verified 10/13/22 09:59 Vomiting duloxetine [From Cymbalta] AdvReac Vomiting Verified 10/13/22 09:58 oxycodone [From OxyContin] AdvReac Nausea and Verified 10/13/22 09:58 Vomiting vortioxetine AdvReac Nausea and Verified 10/13/22 09:59 [From Trintellix] Vomiting Home Medications Medication Instructions Recorded Confirmed Type levothyroxine 0.112 mcg PO QAM 12/17/19 10/13/22 History aspirin 81 mg tablet,delayed 81 mg PO DAILY 01/15/22 10/13/22 History release (Adult Aspirin Regimen) apixaban 5 mg tablet (Eliquis) 1 tablet PO BID 04/20/22 10/13/22 History losartan 100 mg tablet 100 mg PO DAILY 04/20/22 10/13/22 History benzonatate 100 mg capsule 100 mg PO BID PRN cough #20 caps 10/04/22 10/13/22 Rx albuterol sulfate 90 mcg/actuation 1 inh inhalation QID #8.5 grams 10/10/22 10/13/22 Rx aerosol inhaler amlodipine 10 mg tablet 10 mg PO DAILY 10/13/22 10/13/22 History benzonatate 100 mg capsule 100 mg PO TID #21 caps 10/13/22 Rx esomeprazole magnesium 40 mg 20 mg PO QAM #90 caps 10/13/22 Rx capsule,delayed release (Nexium) rosuvastatin 10 mg tablet 10 mg PO DAILY 10/13/22 10/13/22 History tizanidine 2 mg tablet 2 mg PO Q6H PRN Muscle Spasm 10/13/22 10/13/22 History Results Review: All pre-operative results and documents have been reviewed as part of the pre-operative evaluation. [facility], [facility] Past Medical History Medical History Atrial fibrillation Deep vein thrombophlebitis of leg GERD (gastroesophageal reflux disease) Hyperlipidemia Hypertension Hypothyroidism Ashley's Migraine RUPAL (obstructive sleep apnea) Peripheral vascular disease iliac stent 2020 Varicose vein of leg Surgical History Surgical History H/O skin graft right finger x2 History of ankle surgery x4 History of bilateral hip replacements History of hysterectomy Hx of cholecystectomy Hx of tonsillectomy S/P breast biopsy, left x2 S/P cubital tunnel release Bruno teeth removed Family History Family History Father Asbestos exposure Kidney disease Hypertension Mother Cerebrovascular accident Lung cancer Sibling Skin cancer Breast cancer Hypertension Sibling Thyroid condition Social History Social History Social History: Lifelong nonsmoker. Denies alcohol or drug use. Lives with the . Full code. She nominates her to be the individual would make medical decisions for her if she is unable. Smoking status: Never smoker Second hand tobacco smoke exposure: No Alcohol intake:
--- NOTE | 2022-10-29 15:15 | PC.NURSE ---
Pt states no changes in medications or health history since initial interview. New pre-op instructions reviewed with pt. Pt denies further questions at this time.
--- NOTE | 2022-11-03 09:15 | WPDANESEPPF ---
Anes - Initial Pre Proc Eval Procedure: Operation Date: 11/04/22 12:00 Proposed Procedures p Repair Abductor Avulsion Right Hip - Ish Freedman MD Date/Time: 11/03/22 09:15 Surgeon: Ish Freedman MD Pre Op Diagnosis: Rt Hip Abductor Tendon Avulsion Patient Data Age: 61 Gender: F Height: 1.73 m Weight: 106 kg Allergies Allergy/AdvReac Type Severity Reaction Status Date / Time acetaminophen Allergy Severe Rash Verified 10/29/22 15:16 diclofenac Allergy Severe Difficulty Verified 10/29/22 15:16 Breathing adhesive tape Allergy Unknown BLISTERS Verified 10/29/22 15:16 aripiprazole Allergy Unknown Irritable Verified 10/29/22 15:16 morphine Allergy Unknown Hypotension Verified 10/29/22 15:16 NSAIDS (Non-Steroidal Allergy Unknown Rash Verified 10/29/22 15:16 Anti-Inflamma Penicillins Allergy Unknown Hives Verified 10/29/22 15:16 celecoxib [From Celebrex] AdvReac Unknown Nausea and Verified 10/29/22 15:16 Vomiting lisinopril AdvReac Unknown NIGHT COUGH Verified 10/29/22 15:16 Vvuadgc-GMD-ZbV Reductase AdvReac Unknown MUSCLE Verified 10/29/22 15:16 Inhibitor WEAKNESS [Xkataxj-Aki-Uhn Reductase Inhibitor] citalopram [From Celexa] AdvReac Nausea and Verified 10/29/22 15:16 Vomiting duloxetine [From Cymbalta] AdvReac Vomiting Verified 10/29/22 15:16 oxycodone [From OxyContin] AdvReac Nausea and Verified 11/04/22 11:02 Vomiting/itching/hives vortioxetine AdvReac Nausea and Verified 10/29/22 15:16 [From Trintellix] Vomiting Home Medications Medication Instructions Recorded Confirmed Type aspirin 81 mg tablet,delayed 81 mg PO DAILY 01/15/22 11/04/22 History release (Adult Aspirin Regimen) apixaban 5 mg tablet (Eliquis) 1 tablet PO BID 04/20/22 11/04/22 History losartan 100 mg tablet 100 mg PO DAILY 04/20/22 11/04/22 History benzonatate 100 mg capsule 100 mg PO BID PRN cough #20 caps 10/04/22 11/04/22 Rx albuterol sulfate 90 mcg/actuation 1 inh inhalation QID #8.5 grams 10/10/22 11/04/22 Rx aerosol inhaler amlodipine 10 mg tablet 10 mg PO DAILY 10/13/22 11/04/22 History esomeprazole magnesium 40 mg 20 mg PO QAM #90 caps 10/13/22 11/04/22 Rx capsule,delayed release (Nexium) rosuvastatin 10 mg tablet 10 mg PO DAILY 10/13/22 11/04/22 History tizanidine 2 mg tablet 2 mg PO Q6H PRN Muscle Spasm 10/13/22 11/04/22 History levothyroxine 112 mcg tablet 112 mcg PO DAILY 10/29/22 11/04/22 History Patient hx anesthesia problems: none Family hx anesthesia problems: none Results Review: All pre-operative results and documents have been reviewed as part of the pre-operative evaluation. [facility], [facility] Past Medical History Medical History (Updated 11/03/22 @ 09:16 by Patricio Klein, ) Atrial fibrillation Deep vein thrombophlebitis of leg GERD (gastroesophageal reflux disease) Hyperlipidemia Hypertension Hypothyroidism Ashley's Migraine RUPAL (obstructive sleep apnea) Peripheral vascular disease iliac stent 2019 RBBB Varicose vein of leg Surgical History Surgical History H/O skin graft right finger x2 History of ankle surgery x4 History of bilateral hip replacements History of hysterectomy Hx of cholecystectomy Hx of tonsillectomy S/P breast biopsy, left x2 S/P cubital tunnel release Eldred teeth removed Family History Family History Father Asbestos exposure Kidney disease Hypertension Mother Cerebrovascular accident Lung cancer Sibling Skin cancer Breast cancer Hypertension Sibling Thyroid condition Social History Social History Social History: Lifelong nonsmoker. Denies alcohol or drug use. Lives with the . Full code. She nominates her to be the individual would make medical decisions for her if she is unable. Smoking status: Never smoker
[2022-11-04] VITALS (14 sets, daily range): BP systolic 130–164; BP diastolic 66–91; PULSE 67–98; RESP 12–22; TEMP 36.1–37.2; O2SAT 96–100; BMI 34.0
[2022-11-04] MEDS: LACTATED RINGERS 1,000 ML 30 ML IV CONT ×3 (11:15→17:45)
--- NOTE | 2022-11-04 11:57 | WPDHPUPDATE1 ---
History and Physical Update Update Date/Time: 11/04/22 11:57 History and Physical has been reviewed, including an updated exam of the patient. There are NO changes in the patient's condition. Risks, benefits, and alternatives have been discussed and questions answered. Patient agrees to proceed with procedure.
--- NOTE | 2022-11-04 12:13 | WPDHPUPDATE1 ---
History and Physical Update Update Date/Time: 11/04/22 12:13 History and Physical has been reviewed, including an updated exam of the patient. There are NO changes in the patient's condition. Risks, benefits, and alternatives have been discussed and questions answered. Patient agrees to proceed with procedure. We discussed her allergies at length. She does use ibuprofen frq and I advised her that she should not while on high dose eliquis. She is unsure about tylenol. Believes she didnt tolerate in her 30s. She would like to try tylonol while in hospital to make sure she doesnt have a reaction. Severe dry heaves with dilaudid. Antony try tramadol post op for pain. Severe itching with percocet oxycod on hydrocodone.
[2022-11-04] MEDS: ceFAZolin 2 GM/D5W 50 ML 2 GM/50 ML BAG IVPB (12:19)
[2022-11-04] MEDS: ceFAZolin SODIUM 1 GM VIAL 3 GM (14:09)
[2022-11-04] MEDS: ceFAZolin SODIUM 1 GM VIAL 2 GM IV PUSH (15:52)
--- NOTE | 2022-11-04 16:21 | W.PM.PROC2 ---
Procedure Note - Detailed Date of Procedure 11/04/22 Pre-op Diagnosis Rt Hip Abductor Tendon Avulsion Post-op Diagnosis Same (Grade 3 traumatic tear gluteus minimus and gluteus medius tendons right hip. Previous hip replacement 10 years ago) Procedure Performed Repair grade 3 tears right hip gluteus minimus and medius tendons and augmentation with arthro flex acellular dermal allograft Surgeon Ish Freedman MD News Photographer Olivia Anesthesia General Findings Grade 3 tear. Posterior 25% of the gluteus medius still attached Description of Procedure Patient was brought to the operating room general anesthesia was administered. She was placed in lateral decubitus position the right hip prepped draped usual fashion. She received 2 g of Ancef weight based vancomycin preoperatively. She did receive 1 g of IV Tylenol and had no adverse reaction. She also received intravenous ibuprofen. All the skin was covered with Ioban. Previous incision was used. We did not use the proximal most 1 in of the incision and we ended up extending the incision about 1 in distal. To expose a little bit distal to the greater trochanter. The fascia was long incised longitudinally over the center of the greater trochanter. The repair was intact and the fascia was thick and healthy. The soon as we incised the fascia over the greater trochanter about 5 cc of yellow clear fluid expressed that was resting between the fascia and the exposed greater trochanter from which the avulsion had occurred. We carefully the anterior fascia flap from the underlying gluteus medius and then we the posterior fascial flap and gluteus claudia from the underlying gluteus medius. There was a cleft between the minimus and medius for a distance of 2 cm proximal to the greater trochanter and I did not wish to mobilize that cleft any further in order to avoid possible damage to the superior gluteal nerve between the muscles. Next we elevated the gluteus minimus off the lateral and anterior capsule of the hip joint. The capsule was intact and there was no communication with the underlying prosthesis or joint fluid encountered. With the minimus and medius fully mobilized we could see that there was fairly good mobility and the muscle tissue proximally had normal color throughout the entire medius and was without evidence of fatty replacement. We knew that the minimus muscle had significant fatty infiltration based on the previous MRI scan that that was directly visualized due to the overlying medius muscle. With the leg abducted to about neutral I could see that the gluteus medius would advance to its anatomic insertion and we placed separate they tag sutures on the gluteus minimus tendon that we identified underneath the anterior fibers of the medius and this had adequate mobility as well distally. We placed 3 pairs of 2.5 mm klarissa hole was. To the pairs were and the normal position on either side of the normal footprint of the abductor tendon with about a 1/2 cm ridge between the 2 pairs. The anterior-posterior dimension of her greater trochanter was not very large and therefore I elected to place a 3 mm klarissa hole about a cm distal to the distal of the 2 previously placed klarissa holes and in between the and then I passed 5. FiberWire through this and up through the proximal lateral surface of the greater trochanter coming out in between the 2 proximal klarissa holes and a 2nd fiber wires placed came out a few mm away from the 1st. This gave us essentially 3 longitudinally oriented holes for 4 sutures as traction sutures. We then used a Krackow rib step which interlocking to extend about 2 cm into the tendon and back and I placed maximum tension on this and there was no pull out and we then brought that suture through the anterior care of holes and we did the same thing slightly posterior to the 1st pass and then back farther posteriorly and then passed this through the posterior pair of klarissa holes so th
[2022-11-04] MEDS: fentaNYL CITRATE INJ (*CRX) 100 MCG/2 ML VIAL 25 MCG IV PUSH ×8 (17:14→17:57)
[2022-11-04] MEDS: ONDANSETRON INJ 4 MG/2 ML VIAL IV PUSH (18:17)
--- NOTE | 2022-11-04 18:35 | PC.NURSE ---
This patient, Leona Pizarro, was admitted to Virtual Bed PACU Patient/family oriented to hospital policies and general routines including ID bracelet, bed and alarms, visiting hours, pain management, procedures, bathroom and other care routines, personal items, smoking policy, room service/diet, and visiting hours. Information on how to activate the Rapid Response Team has been discussed. Patient/Family are encouraged to report perceived risks to care and to ask questions if they do not understand what they are told or what they should do.
[2022-11-04] MEDS: diphenhydrAMINE HCl INJ 50 MG/ML VIAL IV PUSH (19:02)
[2022-11-04] MEDS: SODIUM CHLORIDE 0.9% IV 1,000 ML 125 ML IV CONT (19:03)
[2022-11-04] MEDS: IBUPROFEN IV 400 MG in SODIUM CHLORIDE 0.9% IV 100 ML 208 MG IVPB (19:16)
--- NOTE | 2022-11-04 19:16 | PC.NURSE ---
Allergies reviewed per Delfina Borjas RN. Patient states she has taken ibuprofen in the past and tolerated. NSAIDS besides the diclofenac and celebrex taken off allergy list per patient request. Dr. Santiagor aware of patients allergies and STILL wants patient to have IV acetaminophen (which she states was many years ago and was severe rash and itching) and IV ibuprofen. This was discussed with Indira in pharmacy.
--- NOTE | 2022-11-04 19:32 | PC.NURSE ---
Bedside report given to ALEXEI Prakash.
--- NOTE | 2022-11-04 20:01 | PC.NURSE ---
1950 bedside report done with ALEXEI Prakash as IV ibuprofen had completed. Patient eating some and denies any dyspnea and itching resolved and pain was improving some.
[2022-11-04] MEDS: traMADol HCL (*CRX) 25 MG TABLET PO (20:44)
[2022-11-04] MEDS: TIZANIDINE HCL 2 MG TABLET PO (20:45)
[2022-11-04] MEDS: BENZONATATE 100 MG CAPSULE PO (21:28)
[2022-11-04] MEDS: ZOLPIDEM TARTRATE (*CRX) 5 MG TABLET PO (22:49)
[2022-11-05 00:45] VITALS: BP 135/71; PULSE 80; RESP 18; TEMP 36.4; O2SAT 95
[2022-11-05] MEDS: traMADol HCL (*CRX) 25 MG TABLET PO ×3 (00:49→09:42)
[2022-11-05] MEDS: IBUPROFEN IV 400 MG in SODIUM CHLORIDE 0.9% IV 100 ML 208 MG IVPB (01:06)
[2022-11-05 04:45] VITALS: BP 141/75; PULSE 80; RESP 18; TEMP 36.9; O2SAT 92
[2022-11-05] MEDS: LEVOTHYROXINE SODIUM 112 MCG TABLET PO (05:47)
[2022-11-05] MEDS: BENZONATATE 100 MG CAPSULE PO (07:30)
--- NOTE | 2022-11-05 08:09 | PC.NURSE ---
Ortho PA Abundio at bedside talking with patient and answering questions.
--- NOTE | 2022-11-05 08:25 | PM.PNORT ---
Subjective Subjective Date/Time Seen: 11/05/22 08:25 Postop day 1 patient is alert. Pain is not completely controlled. Return her tramadol to 50. She is tolerating 25. We are going to put her on p.o. Tylenol at this point. She is tolerating reactions. Drain will be. She is not work with therapy yet. Long talk with the patient about her recovery as far as going home and not using the leg. I have reviewed with her to wait to move leg in And out of bedside as well supported. She will go home with the abductor pillow to use night while sleeping. Therapy will work with patient today and the plan will be discharged home this afternoon after antibiotics are completed Objective Data Vital Signs Vital Signs: Vital Signs - 24 hr 11/04/22 10:18 11/04/22 16:45 11/04/22 17:00 Temperature 36.7 C 37.2 C Pulse Rate 94 98 86 Respiratory Rate 20 14 14 Blood Pressure 164/81 H 132/80 152/78 H Pulse Oximetry 100 100 96 Oxygen Delivery Room Air Simple Face Mask Room Air Oxygen Flow Rate 8 11/04/22 17:15 11/04/22 17:30 11/04/22 17:45 Temperature Pulse Rate 91 98 81 Respiratory Rate 16 18 18 Blood Pressure 135/74 143/91 H 139/73 Pulse Oximetry 99 98 97 Oxygen Delivery Room Air Room Air Room Air Oxygen Flow Rate 11/04/22 18:00 11/04/22 18:10 11/04/22 18:35 Temperature 36.4 C Pulse Rate 81 74 67 Respiratory Rate 12 14 20 Blood Pressure 142/71 H 132/72 130/66 Pulse Oximetry 97 97 97 Oxygen Delivery Room Air Room Air Oxygen Flow Rate 11/04/22 18:50 11/04/22 19:00 11/04/22 19:15 Temperature 36.7 C 36.8 C 37.2 C Pulse Rate 76 77 87 Respiratory Rate 22 H 20 20 Blood Pressure 144/77 H 138/75 145/81 H Pulse Oximetry 96 96 98 Oxygen Delivery Oxygen Flow Rate 11/04/22 19:45 11/04/22 20:45 11/05/22 00:45 Temperature 36.1 C L 36.6 C 36.4 C Pulse Rate 77 83 80 Respiratory Rate 20 20 18 Blood Pressure 149/70 H 145/85 H 135/71 Pulse Oximetry 97 99 95 Oxygen Delivery Oxygen Flow Rate 11/05/22 04:45 Temperature 36.9 C Pulse Rate 80 Respiratory Rate 18 Blood Pressure 141/75 H Pulse Oximetry 92 Oxygen Delivery Oxygen Flow Rate Intake/Output Intake/Output: Intake & Output 11/02/22 11/03/22 11/04/22 11/05/22 23:59 23:59 23:59 23:59 Intake Total 2126 904 Output Total 480 530 Balance 1646 374 Meds/Results Medications: Active Medications Generic Name Dose Route Start Last Admin Trade Name Freq PRN Reason Stop Dose Admin Acetaminophen 1,000 mg 11/05/22 08:18 Acetaminophen 500 Mg Tablet PO Q6H PRN Mild Pain (1-3) or Fever Albuterol 1 puff 11/04/22 20:00 11/04/22 22:22 Albuterol Sulfate (*Sp) Aerosol 1 Puff INHALATION Not Given QIDRT CHAD Amlodipine Besylate 10 mg 11/05/22 09:00 Amlodipine Besylate 5 Mg Tablet PO DAILY CHAD Apixaban 2.5 mg 11/05/22 09:00 11/05/22 08:01 Apixaban 2.5 Mg Tablet PO Not Given Q12HR CHAD Diphenhydramine HCl 50 mg 11/04/22 18:53 11/04/22 19:02 Diphenhydramine Hcl Inj 50 Mg/Ml Vial IV PUSH 50 mg Q6HR PRN Administration Itching Doxycycline Hyclate 100 mg 11/05/22 21:00 Doxycycline Hyclate 100 Mg Tablet PO 11/10/22 20:59 Q12HR CHAD Cefazolin Sodium 1 gm in 50 mls @ 100 mls/hr 11/05/22 00:00 11/05/22 07:59 Ancef 1 Gm/D5w 50 Ml Pm IVPB 11/05/22 16:29 100 mls/hr Q8H CHAD Administration Levothyroxine Sodium 112 mcg 11/05/22 06:30 11/05/22 05:47 Levothyroxine Sodium 112 Mcg Tablet PO 112 mcg DAILY@0630 CHAD Administration Losartan Potassium 100 mg 11/05/22 09:00 Losartan Potassium 100 Mg Tablet PO DAILY CHAD Naloxone HCl 0.1 mg 11/04/22 18:19 Naloxone Hcl 0.4 Mg/Ml Vial IV PUSH Q2M PRN Opiate Reversal Pantoprazole Sodium 20 mg 11/05/22 09:00 Pantoprazole Sod Sesquihydrate 20 Mg Tab PO 12/05/22 08:59 QAM CHAD Polyethylene Glycol 17 gm 11/05/22 09:00 Polyethylene Glycol 3350 17 Gm Powd.Pack PO QAM CHAD
--- NOTE | 2022-11-05 08:29 | PC.NURSE ---
PT in room with patient.
[2022-11-05 08:30] VITALS: BP 136/70; PULSE 71; RESP 16; TEMP 36.7; O2SAT 97
[2022-11-05 08:46] VITALS: BMI 10.0
[2022-11-05] MEDS: KETOROLAC 15 MG/ML VIAL (*BKC) IV PUSH (09:39)
[2022-11-05] MEDS: amLODIPine BESYLATE 5 MG TABLET 10 MG PO (09:43)
[2022-11-05] MEDS: SENNA/DOCUSATE SODIUM TABLET 2 TAB PO ×2 (09:43→16:17)
[2022-11-05] MEDS: LOSARTAN POTASSIUM 100 MG TABLET PO (09:43)
[2022-11-05] MEDS: polyethylene glycoL 3350 17 GM POWD.PACK PO (09:44)
[2022-11-05] MEDS: ROSUVASTATIN 10 MG TABLET PO (09:44)
[2022-11-05] MEDS: PANTOPRAZOLE SOD SESQUIHYDRATE 20 MG TAB PO (09:44)
[2022-11-05] MEDS: APIXABAN 2.5 MG TABLET PO (09:46)
--- NOTE | 2022-11-05 10:04 | PM.DS ---
DS: Admitting Diagnosis Discharge Date 11/05 Admitting Diagnosis right hip abductor tear DS: Summary Hospital Course Hospital Course: 61-year-old female who underwent repair of her right hip abductor tendon. Surgery was on 11/04. She underwent procedure without complications. Postop she has been afebrile vital signs are stable. Her drain is out. She is strict toe-touch weight-bearing with a walker. Patient is using tramadol 50 mg for pain control. She has multiple allergies to narcotics. She will be discharged home on 11/05. She will go home on a 4 day course of doxycycline. She did get it 2.5 mg Eliquis and will resume her 5 mg Eliquis that she takes chronically, she will start this on 11/06. Patient was advised she needs to use an abductor pillow when she is in bed. She is to have no active use of the right hip. She has been advised she needs to have someone support the leg well she is moving from a bed to a standing position. This will require family members to do this for her. If she uses the abductor muscles in the right hip there is a possibility she will have failure of the repair. This was discussed with her in depth prior to her discharge. She will also continue with taking Tylenol 1000 mg every 6 hours to help with pain control. Her dressing is dry and intact. She will change the dressing in 1 week at home and in maintain that dressing till seen in the office. Patient was advise any questions or concerns she is to call the office otherwise we will see her at her point to date. Time Spent with Patient Time attestation: Total time spent providing and/or coordinating discharge services: Discharge Plan Discharge Patient Disposition: Home, Self-Care Discharge Instructions: patient is to use abductor pillow every night while sleeping. Patient is not to move the leg on her own. When she is getting in or out of bed leg should be completely supported by a different person and patient should keep leg limp. She is touch weight-bearing with a walker for 3 months. Patient should change dressing in 1 week, and maintain the dressing until seen in office. Patient can resume her Eliquis Wednesday morning. Patient is to have no active abduction of the right leg Patient Instructions: Pain Management (DC), Blood Thinners (DC) Stand Alone Forms: General Discharge Instructions Follow-up/Referrals: Ish Freedman MD [Physician] - Keep Reg. Scheduled Appt. Discharge Medications: New acetaminophen 500 mg Tablet 1,000 mg PO Q6H Qty: 90 0RF sennosides-docusate sodium [Senokot-S] 8.6-50 mg Tablet 2 tab-cap PO BID Qty: 60 0RF polyethylene glycol 3350 [Miralax] 17 gram Powder In Packet 17 g PO QAM Qty: 30 0RF doxycycline hyclate 100 mg Tablet 100 mg PO Q12HR Qty: 12 0RF tramadol 50 mg tablet 100 mg PO Q6H Qty: 50 0RF Continued aspirin [Adult Aspirin Regimen] 81 mg tablet,delayed release (DR/EC) 81 mg PO DAILY esomeprazole magnesium [Nexium] 40 mg capsule,delayed release(DR/EC) 20 mg PO QAM Qty: 90 1RF losartan 100 mg tablet 100 mg PO DAILY benzonatate 100 mg capsule 100 mg PO BID PRN (Reason: cough) Qty: 20 0RF tizanidine 2 mg tablet 2 mg PO Q6H PRN (Reason: Muscle Spasm) amlodipine 10 mg tablet 10 mg PO DAILY rosuvastatin 10 mg tablet 10 mg PO DAILY levothyroxine 112 mcg tablet 112 mcg PO DAILY albuterol sulfate 90 mcg/actuation HFA aerosol inhaler 1 inh inhalation QID Qty: 8.5 0RF Held Eliquis 5 mg tablet 1 tablet PO BID Hold Instructions: Resume on 11/06/22. resume Eliquis Wednesday morning
[2022-11-05] MEDS: ACETAMINOPHEN 500 MG TABLET 1000 MG PO (12:51)
--- NOTE | 2022-11-05 13:30 | WPDANESPN ---
Anes - Prog Note Post-Op Date/Time: 11/05/22 13:30 Cardiovascular status: normal Respiratory status: normal Airway patency: baseline Mental status: baseline Post-Op hydration status: normal Vital Signs: Last Vital Signs Temp 36.7 C 11/05/22 08:30 Pulse 71 11/05/22 08:30 Resp 16 11/05/22 08:30 BP 136/70 11/05/22 08:30 Pulse Ox 97 11/05/22 08:30 O2 Del Method Room Air 11/05/22 08:46 O2 Flow Rate 8 11/04/22 16:45 Pain Score (VAS): 0 I/O: Intake & Output 11/04/22 11/05/22 11/05/22 23:59 07:59 15:59 Intake Total 1576 904 410 Output Total 480 530 500 Balance 1096 374 -90 Post-procedural complaints: none Patient Feedback: Patient satisfied with anesthetic care.
--- NOTE | 2022-11-05 13:33 | WPDANESPN ---
Anes - Prog Note Post-Op Date/Time: 11/05/22 13:33 Cardiovascular status: normal Respiratory status: normal Airway patency: baseline Mental status: baseline Post-Op hydration status: normal Vital Signs: Last Vital Signs Temp 36.7 C 11/05/22 08:30 Pulse 71 11/05/22 08:30 Resp 16 11/05/22 08:30 BP 136/70 11/05/22 08:30 Pulse Ox 97 11/05/22 08:30 O2 Del Method Room Air 11/05/22 08:46 O2 Flow Rate 8 11/04/22 16:45 Pain Score (VAS): 2/10 I/O: Intake & Output 11/04/22 11/05/22 11/05/22 23:59 07:59 15:59 Intake Total 1576 904 410 Output Total 480 530 500 Balance 1096 374 -90 Post-procedural complaints: none Patient Feedback: Patient satisfied with anesthetic care.
--- NOTE | 2022-11-05 15:50 | PC.NURSE ---
Pharmacy entered in error was mail in order only so office was contacted by this RN and medications Tramadol, Doxycyclcine, Mirlex, Senokot and Tylenol were transcribed by ELISEO Luna. Patient was instructed to follow label on prescriptions.
[2022-11-05 16:00] VITALS: BP 143/65; PULSE 73; RESP 16; TEMP 37.4; O2SAT 97
[2022-11-05] MEDS: traMADol HCL (*CRX) 50 MG TABLET PO (17:21)
== END 2022-11-05 18:45 | disposition home or self-care (01) ==
LOC: ANHSURGERY 10:00 → ANHSUROVER 18:27
PROVIDERS: PCP Emergency Medicine; Visit Provider Orthopaedic Surgery
PROC: (CPT 27299; principal; 2022-11-04 12:00)
DX: S76.291A Other injury of adductor muscle, fascia and tendon of right thigh, initial encounter (principal); W01.0XXA Fall on same level from slipping, tripping and stumbling without subsequent striking against object, initial encounter; Z23 Encounter for immunization; I48.91 Unspecified atrial fibrillation; I10 Essential (primary) hypertension; E78.5 Hyperlipidemia, unspecified; E06.3 Autoimmune thyroiditis; K21.9 Gastro-esophageal reflux disease without esophagitis; G47.33 Obstructive sleep apnea (adult) (pediatric); I73.9 Peripheral vascular disease, unspecified; Z86.718 Personal history of other venous thrombosis and embolism; Z95.820 Peripheral vascular angioplasty status with implants and grafts; Z79.82 Long term (current) use of aspirin; Z79.01 Long term (current) use of anticoagulants; Z79.51 Long term (current) use of inhaled steroids
CPT/HCPCS: 27299; 87081; 90471; 90686; 97116; 97162; 97165; 97530; 97535; A9270; G0008; J0131; J0171; J0330; J0690; J1100; J1170; J1200; J1741; J1885; J2250; J2270; J2370; J2405; J2704; J2710; J2795; J3010; J3370; J7030; J7120

== ENCOUNTER 2023-06-23 11:00 | Outpatient (RCR) | payer OTHER, MEDICARE, SELFPAY ==
--- NOTE | 2023-05-18 11:04 | OPREHPOC ---
Outpatient Therapy Plan of Care This is a Multidisciplinary Plan of Care that may contain components documented by all disciplines (PT, OT, and ST.) PT Problem 1 PT Problem #1 Knowledge Deficit PT Goal 1 Goal 1* pt indep with HEP PT Problem 2 PT Problem #2 Pain PT Goal 1 Goal 1* pt report pain R hip of 5/10 at worst PT Problem 3 PT Problem #3 Impaired Strength PT Goal 1 Goal increase strength of R hip, pt able to perform 20 reps: 1* supine SLR 2* side lying hip abduction to 10' 3* supine bridge 4* single leg standing with 1 UE support x 30 sec with good stability PT Problem 4 PT Problem #4 Impaired Range of Motion PT Goal 1 Goal R hip ROM in supine: 1* flexion 105' 2* IR 15' 3* ER 30' PT Problem 5 PT Problem #5 Impaired Gait PT Goal 1 Goal 1* 2 minute walking test distance of 375' 2* ambulate with weight shift onto R LE
--- NOTE | 2023-05-18 11:04 | PTOPEVAL1 ---
Assessment and note entered by Velma Vale, PT Evaluation Information Assessment Status Evaluation Diagnosis s/p R hip abduction tendon repair Onset Nov 04, 2022 Subjective Information Aug 2021---fell with L ankle ORIF and R hip pain; R hip pain continued; had surgical repair of R hip abduction muscle tendon, with cadaver tissue; post op--bed for 3 months, then w/c, walker and 2 months ago started using the cane; only restriction per pt--do not do alot of walking , short distances only; have fallen 2x since surgery- fell going down 4 steps, at grocery store when pushing cart and something slid off the bottom of cart and cart disrupted; sometimes leg give out--weakness ACTIVITY: prior to hip surgery-- used cane PRN, due to poor balance; is not working outside of home; active and walked and swimming for fitness- -3 miles; have had fitness membership with pool- -want to go back again; Reported Pain Level Pain Score Self Report Additional Pain Score Comments pain range in the past week: 5-8/10; hurts, feel something in there, tension of the muscle on side of thigh; increase pain: steps- have ramp entry into home; cannot lie on R side decrease pain: sit, rest, heat, ice, tylenol PRN; also having R knee pain-- had cortisone shot, helped a little, but xray is bone on bone ; have history of R knee tear and monitored in the past; Assessment PT Clinical Summary Hillary is s/p R hip abduction muscle repair. She had a fall with L ankle ORIF and L hip muscle tear Prior to that fall, she had balance issues and used a cane, was active and walked for fitness. With the evaluation: she has weakness over R hip, with decreased ROM and pain with hip motions of flexion, IR and ER in supine; 2 minute walking test distance of 275' with cane. Skilled PT services are indicated for aquatic and land therapy to increase strength and flexibility of R hip, modalities for pain control and education for gait and HEP. Plan of Care Interventions [place]
--- NOTE | 2023-05-18 11:05 | PCPTNOTE ---
at the evaluation appt, pt stated she will be out of town on vacation the week of May 24;
--- NOTE | 2023-06-01 16:23 | PCPTNOTE ---
pt called and canceled today's appt, due to her son having a seizure and going to the hospital with him.
--- NOTE | 2023-06-23 11:46 | PTOPDC ---
Assessment and note entered by Velma Vale, PT Evaluation Information Assessment Status Discharge Diagnosis s/p R hip abduction tendon repair Onset Nov 04, 2022 Subjective Information feels like she is ready to be finished with therapy; is able to walk about 1/2 mile for fitness, doing water exercises at her daughter's pool; is using kinesiotape over scar and doing her home exercises. Reported Pain Level Pain Score Self Report Additional Pain Score Comments pain range of 3-7/10- posterior and lateral hip; increase pain with land exercises decrease pain with heat/ice, over the counter meds PRN; Assessment PT Clinical Summary Hillary has received 8 PT sessions. She has improved in all areas: pain from 5-8/10 to 3-7/10; increase strength of R hip with mat and standing exercises; gait improved with pattern no longer uses assistive device and 2 minute walking test distance increase from 275' to 425'; increase R hip flexion, IR and ER range of motion She is indep with her HEP and motivated to continue to increase her activity level. The goals were achieved, except pain rating at the worst. Discharge PT services. Plan of Care PT Services Indicated No
== END 2023-06-23 13:05 | disposition home or self-care (01) ==
LOC: ANHPT 11:00
PROVIDERS: PCP Emergency Medicine; Visit Provider Orthopaedic Surgery
DX: M25.551 Pain in right hip (principal)
CPT/HCPCS: 97110; 97112; 97113; 97140; 97162; 97530

== ENCOUNTER 2024-08-07 05:45 | Observation (INO) | payer OTHER, MEDICARE, SELFPAY ==
[2024-08-07] VITALS (15 sets, daily range): BP systolic 123–157; BP diastolic 70–104; PULSE 61–118; RESP 12–20; TEMP 36.6–36.7; O2SAT 91–100; BMI 29.0
--- NOTE | ~2024-08-07 | XR_ITS ---
Portable chest x-ray Comparison: 10/10/2022 Clinical History: Chest pain Findings: Lungs are clear, without focal consolidation or pleural effusion. Cardiomediastinal silho uette is stable. Bones and soft tissues are unremarkable. Impression: Normal chest. Reviewed, dictated and finalized at [facility]. Impression: Normal chest.
--- NOTE | ~2024-08-07 | CT_ITS ---
Clinical Indication: Pulmonary embolus CT Scan of the Chest with Contrast: Technique: Contiguous sections were acquired throughout the chest after intravenous administration of 100 cc of Omnipaque 350. Dose reduction technique was used on this scan by utilizing automated expos ure control and iterative reconstruction technique. The dose-length product (DLP) was 365.39 mGy-cm. Findings: There is no evidence of any significant mediastinal, hilar or axillary lymphadenopathy. There is no f illing defect in the pulmonary arterial tree to suggest pulmonary embolus. There is no evidence of ao rtic dissection or aneurysm. There is no evidence of pleural or pericardial effusion. The lungs are clear. No pulmonary nodules or infiltrates are noted. Images through the upper abdomen reveal no abnormalities. Impression: No evidence of pulmonary embolus, aortic dissection, or aortic aneurysm. Clear lungs. Reviewed, dictated and finalized at [facility]. Impression: No evidence of pulmonary embolus, aortic dissection, or aortic aneurysm. Clear lungs.
--- NOTE | 2024-08-07 05:46 | ECG_ITS ---
Test Date: 2024-08-07 05:57:36 Measurements Intervals [place] Rate: 120 P: 0 MT: 0 QRS: -36 QRSD: 144 T: 1 QT: 341 QTc: 482 Interpretive Statements ATRIAL FIBRILLATION WITH RAPID VENTRICULAR RESPONSE MARKED LEFT AXIS DEVIATION [QRS AXIS < -30] RIGHT BUNDLE BRANCH BLOCK [120+ ms QRS DURATION, UPRIGHT V1, 40+ ms S IN I/aVL/V4/V5/V6] No previous ECG available for comparison Electronically Signed On 08-07-2024 14:32:47 CDT by Lee Mao M.D.
[2024-08-07 06:08] LABS: Basophils Percent Auto 0.1 % (0.2-1.2); Hemoglobin 14.6 g/dL (12.0-15.0); Immature Granulocyte Absolute 0.01 K/mm3 (0.00-0.031); Immature Granulocyte Percent A 0.1 % (0-0.5); Lymphocytes Absolute Auto 1.54 K/mm3 (0.9-3.2); Lymphocytes Percent Auto 22.4 % (18.3-44.2); Mean Corpuscular HGB Conc 34.8 g/dl (32-36); Mean Corpuscular Hemoglobin 32.6 pg (26-34); Mean Corpuscular Volume 93.8 fl (80-100); Mean Platelet Volume 9.3 fl (7.4-10.4); Monocytes Absolute Auto 0.5 K/mm3 (0.1-0.6); Monocytes Percent Auto 7.1 % (2.6-8.5); Neutrophils Absolute Auto 4.8 K/mm3 (1.3-6.7); Neutrophils Percent Auto 70.3 % (45.5-73.1); Platelet Count Result 289 k/mm3 (150-375); Red Blood Count 4.48 M/mm3 (4.2-5.4); Red Cell Distribution Width 12.8 % (11.5-14.5); White Blood Count 6.9 K/mm3 (4.5-10.0)
--- NOTE | 2024-08-07 06:11 | ECG_ITS ---
Test Date: 2024-08-07 06:14:17 Measurements Intervals [place] Rate: 66 P: -11 CA: 199 QRS: -26 QRSD: 146 T: 9 QT: 395 QTc: 414 Interpretive Statements SINUS RHYTHM WITH OCCASIONAL VENTRICULAR PREMATURE COMPLEXES BORDERLINE LEFT AXIS DEVIATION [QRS AXIS < -20] RIGHT BUNDLE BRANCH BLOCK [120+ ms QRS DURATION, UPRIGHT V1, 40+ ms S IN I/aVL/V4/V5/V6] Compared to ECG 08/07/2024 05:57:36 Ventricular premature complex(es) now present Atrial fibrillation no longer present Electronically Signed On 08-07-2024 14:33:14 CDT by Lee Mao M.D.
--- NOTE | 2024-08-07 06:12 | ED_ITS ---
HPI - Chest Pain General Chief Complaint: Chest Pain <Berhane Bustillos MD - Last Filed: 08/07/24 07:09> Stated Complaint: chest pain <Berhane Bustillos MD - Last Filed: 08/07/24 07:09> Time Seen by Provider: 08/07/24 05:58 <Berhane Bustillos MD - Last Filed: 08/07/24 07:09> History of Present Illness HPI narrative: 63-year-old female with a past medical history significant for peripheral vascular disease status post stents, hypertension, atrial fibrillation not presently taking her prescribed Xarelto. She is not on any rate controlling m edications either. She presents to the emergency room today with sudden onset left-sided chest pain with difficulty breathing that woke her up from sleep at 3:30 a.m.. Patient states she has a history of panic attacks anxiety but this feels very different. Patient states her heart rate was significant elevated and presently in triage was in the 120s with AFib on the monitor. On my initial encounter with the patient she had converted back to normal sinus rhythm and was rate controlled without any interventions. Patient presently is endorsing left- sided chest pain going down her left arm. Endorses some nausea and shortness of breath. 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 She is noncompliant her Eliquis therapy. <Berhane Bustillos MD - Last Filed: 08/07/24 07:09> Related Data Home Medications: Home Medications Medication Instructions Recorded Confirmed aspirin 81 mg tablet,delayed 81 mg PO DAILY 01/15/22 04/07/24 release (Adult Aspirin Regimen) apixaban 5 mg tablet (Eliquis) 1 tablet PO BID 04/20/22 04/07/24 losartan 100 mg tablet 100 mg PO DAILY 04/20/22 04/07/24 amlodipine 10 mg tablet 10 mg PO DAILY 10/13/22 04/07/24 levothyroxine 112 mcg tablet 112 mcg PO DAILY 10/29/22 04/07/24 pravastatin 20 mg tablet 20 mg PO DAILY 06/22/23 04/07/24 tizanidine 4 mg tablet 4 mg PO Q6H PRN 06/22/23 04/07/24 <Berhane Bustillos MD - Last Filed: 08/07/24 07:09> Allergies/Adverse Reactions: Allergies Allergy/AdvReac Type Severity Reaction Status Date / Time diclofenac Allergy Severe Difficulty Verified 08/07/24 05:58 Breathing adhesive tape Allergy Unknown BLISTERS Verified 08/07/24 05:58 aripiprazole Allergy Unknown Irritable Verified 08/07/24 05:58 morphine Allergy Unknown Hypotension Verified 08/07/24 05:58 Penicillins Allergy Unknown Hives Verified 08/07/24 05:58 hydromorphone [From Dilaudid] AdvReac Severe Nausea and Verified 08/07/24 05:58 Vomiting celecoxib [From Celebrex] AdvReac Unknown Nausea and Verified 08/07/24 05:58 Vomiting lisinopril AdvReac Unknown NIGHT COUGH Verified 08/07/24 05:58 Dmnpodz-API-RtJ Reductase AdvReac Unknown MUSCLE Verified 08/07/24 05:58 Inhibitor WEAKNESS [Hwoqjdb-Pte-Cia Reductase Inhibitor] citalopram [From Celexa] AdvReac Nausea and Verified 08/07/24 05:58 Vomiting duloxetine [From Cymbalta] AdvReac Vomiting Verified 08/07/24 05:58 oxycodone [From OxyContin] AdvReac Nausea and Verified 08/07/24 05:58 Vomiting/itching/hives vortioxetine AdvReac Nausea and Verified 08/07/24 05:58 [From Trintellix] Vomiting <Berhane Bustillos MD - Last Filed: 08/07/24 07:09> Review of Systems Review of Systems: As reviewed above in HPI <Berhane Bustillos MD - Last Filed: 08/07/24 07:09> [facility] Past Medical History Medical History: Medical History Anal sphincter spasm Atrial fibrillation Atypical chest pain Deep vein thrombophlebitis of leg Diarrhea External hemorrhoids GERD (gastroesophageal reflux disease) Hip pain Hyperlipidemia Hypertension Hypothyroidism Ashley's Migraine RUPAL (obstructive sleep apnea) Peripheral vascular disease iliac stent 2020 Preoperative clearance RBBB Varicose vein of leg <Berhane Bustillos MD - Last Filed: 08/07/24 07:09> Surgical History Surgical History: Surgical History H/O skin graft right finger x2 History of ankle surgery x4 History of bilateral hip replacements History of hysterectomy Hx of cholecystectomy Hx of tonsillectomy S/P breast biopsy, left x2 S/P cubital tunnel release Star[place] teeth removed <Berhane Bustillos MD - Last Filed: 08/07/24 07:09> Family History Family History: Family History Father Asbestos exposure Kidney disease Hypertension Mother Cerebrovascular accident Lung cancer Sibling Skin cancer Breast cancer Hypertension Sibling Thyroid condition <Berhane Bustillos MD - Last Filed: 08/07/24 07:09> Social History Social History: Social History Social History: Lifelong nonsmoker. Denies alcohol or drug use. Lives with the . Full code. She nominates her to be the individual would make medical decisions for her if she is unable. Smoking status: Never smoker Second hand tobacco smoke exposure: No Alcohol intake: never Substance use: never Substance use type: does not use Do You Feel Safe in your Home?: Yes Lack of Transportation: No Lack of Food: Never True Current Housing: I Have Housing Concerned About Future Housing: No Difficulty Paying Gas/Electric Bills: No Difficulty Paying for Meds: No Currently Unemployed: No Education: Decline to Answer Difficulty w/ Childcare or Family Care: Decline to Answer Living arrangements: with family Occupation/Education: retired Gender identity (if verbalized by the patient): Female Spiritual care concerns: No <Berhane Bustillos MD - Last Filed: 08/07/24 07:09> Exam Narrative: GENERAL: [Well-appearing, well-nourished, and in no acute distress.] HEAD: [Normocephalic, atraumatic.] EYES: [PERRLA and EOMI.] ENT: Nares clear, no rhinorrhea or epistaxis. Mucous membranes moist. NECK: Supple. CHEST: [Clear to auscultation. No respiratory distress.] HEART: [Regular rate and rhythm]. No murmur heard. [Normal peripheral pulses.] ABDOMEN: [Soft, nondistended], [nontender], [No rigidity or guarding] EXTREMITIES: Normal range of motion. [No edema.] Postsurgical scars on the left ankle SKIN: Warm, dry, no rash. NEURO: [No focal deficits]. Alert and oriented [x3.] PSYCH: [Normal mood and affect.] <Berhane Bustillos MD - Last Filed: 08/07/24 07:09> Course Course Emergency Course: No PE. Admit to hospitalist service for chest pain. <Vamsi Parra MD - Last Filed: 08/07/24 09:07> Vital Signs Vital signs: Vital Signs Temperature 97.8 F 08/07/24 05:52 Pulse Rate 117 H 08/07/24 05:52 Respiratory Rate 19 08/07/24 05:52 Blood Pressure 140/104 H 08/07/24 05:52 Pulse Oximetry 100 08/07/24 05:52 Oxygen Delivery Room Air 08/07/24 05:52 Temperature 97.8 F 08/07/24 05:52 Pulse Rate 86 08/07/24 08:56 Respiratory Rate 19 08/07/24 08:56 Blood Pressure 134/88 08/07/24 08:56 Pulse Oximetry 99 08/07/24 08:56 Oxygen Delivery Room Air 08/07/24 05:57 <Berhane Bustillos MD - Last Filed: 08/07/24 07:09> Vital Signs Temperature 97.8 F 08/07/24 05:52 Pulse Rate 117 H 08/07/24 05:52 Respiratory Rate 19 08/07/24 05:52 Blood Pressure 140/104 H 08/07/24 05:52 Pulse Oximetry 100 08/07/24 05:52 Oxygen Delivery Room Air 08/07/24 05:52 Temperature 97.8 F 08/07/24 05:52 Pulse Rate 86 08/07/24 08:56 Respiratory Rate 19 08/07/24 08:56 Blood Pressure 134/88 08/07/24 08:56 Pulse Oximetry 99 08/07/24 08:56 Oxygen Delivery Room Air 08/07/24 05:57 <Vamsi Parra MD - Last Filed: 08/07/24 09:07> MDM - Chest Pain MDM Narrative Medical decision making narrative: 63-year-old female with history of atrial fibrillation and peripheral vascular disease as well as unprovoked DVT. She is noncompliant with her Eliquis therapy. She also is not on any rate controlling medications for her atrial fibrillation. She woke up with sudden left-sided left-sided chest discomfort shortness of breath at 3:30 a.m. approximately 3 hours prior to my initial evaluation. She was AFib RVR on the monitor initially but had spontaneously converted down to normal sinus rhythm without any interventions. She is still expressing chest pain and left-sided arm pain in addition shortness of breath. Hemodynamically she is stable with normal blood pressure, no hypoxia, pulse within normal limits. Differential diagnosis includes thrombotic event such as a DVT/PE, ACS on the differential, less likely pneumothorax or infectious pathology such as pneumonia. Patient's workup is underway and a CT angiography scan was ordered. Patient will be signed out to the oncoming ED physician Dr. Parra pending results and final disposition, likely admission with her elevated heart score. <Berhane Bustillos MD - Last Filed: 08/07/24 07:09> Lab Data Result diagrams: 08/07/24 06:03 08/07/24 06:03 <Berhane Bustillos MD - Last Filed: 08/07/24 07:09> Labs: Lab Results 08/07/24 Range/Units 06:03 WBC 6.9 (4.5-10.0) K/mm3 RBC 4.48 (4.2-5.4) M/mm3 Hgb 14.6 (12.0-15.0) g/dL Hct 42.0 (37.0-47.0) % MCV 93.8 (80-100) fl MCH 32.6 (26-34) pg MCHC 34.8 (32-36) g/dl RDW 12.8 (11.5-14.5) % Plt Count 289 (150-375) k/mm3 MPV 9.3 (7.4-10.4) fl Immature Gran % (Auto) 0.1 (0-0.5) % Neut % (Auto) 70.3 (45.5-73.1) % Lymph % (Auto) 22.4 (18.3-44.2) % [place] % (Auto) 7.1 (2.6-8.5) % Eos % (Auto) 0.0 (0-4.4) % Baso % (Auto) 0.1 L (0.2-1.2) % Lymph # (Auto) 1.54 (0.9-3.2) K/mm3 [place] # (Auto) 0.5 (0.1-0.6) K/mm3 Eos # (Auto) 0.0 (0-0.3) K/mm3 Baso # (Auto) 0.0 (0.0-0.1) K/mm3 Abs Immat Gran (auto) 0.01 (0.00-0.031) K/mm3 Absolute Neuts (auto) 4.8 (1.3-6.7) K/mm3 Absolute Nucleated RBC 0.000 (0.0-0.012) K/mm3 Nucleated RBC % 0.0 (0.0-0.2) % PT 13.0 (11.1-14.7) Seconds INR 0.9 APTT 28.7 (22.3-36.8) Seconds Sodium 138 (137-145) mmol/L Potassium 3.8 (3.4-5.0) mmol/L Chloride 105 (98-107) mmol/L Carbon Dioxide 23 (22-30) mmol/L Anion Gap 10 (4-12) mmol/L BUN 17 D (7-17) mg/dL Creatinine 1.00 (0.7-1.0) mg/dL Estim Creat Clear Calc 62 ml/min Estimated GFR 56 L (59 - ) Glucose 97 (65-110) mg/dL Calcium 9.6 (8.4-10.2) mg/dL Total Bilirubin 0.7 (0.2-1.3) mg/dL AST 23 (14-36) U/L ALT 15 (6-35) U/L Alkaline Phosphatase 103 (38-126) U/L Troponin I < 0.012 (0.000-0.034) ng/mL Total Protein 8.0 (6.3-8.2) g/dL Albumin 4.7 (3.5-5.1) g/dL Lipase 172 (23-300) U/L <Berhane Bustillos MD - Last Filed: 08/07/24 07:09> Lab Results 08/07/24 Range/Units 06:03 WBC 6.9 (4.5-10.0) K/mm3 RBC 4.48 (4.2-5.4) M/mm3 Hgb 14.6 (12.0-15.0) g/dL Hct 42.0 (37.0-47.0) % MCV 93.8 (80-100) fl MCH 32.6 (26-34) pg MCHC 34.8 (32-36) g/dl RDW 12.8 (11.5-14.5) % Plt Count 289 (150-375) k/mm3 MPV 9.3 (7.4-10.4) fl Immature Gran % (Auto) 0.1 (0-0.5) % Neut % (Auto) 70.3 (45.5-73.1) % Lymph % (Auto) 22.4 (18.3-44.2) % [place] % (Auto) 7.1 (2.6-8.5) % Eos % (Auto) 0.0 (0-4.4) % Baso % (Auto) 0.1 L (0.2-1.2) % Lymph # (Auto) 1.54 (0.9-3.2) K/mm3 [place] # (Auto) 0.5 (0.1-0.6) K/mm3 Eos # (Auto) 0.0 (0-0.3) K/mm3 Baso # (Auto) 0.0 (0.0-0.1) K/mm3 Abs Immat Gran (auto) 0.01 (0.00-0.031) K/mm3 Absolute Neuts (auto) 4.8 (1.3-6.7) K/mm3 Absolute Nucleated RBC 0.000 (0.0-0.012) K/mm3 Nucleated RBC % 0.0 (0.0-0.2) % PT 13.0 (11.1-14.7) Seconds INR 0.9 APTT 28.7 (22.3-36.8) Seconds Sodium 138 (137-145) mmol/L Potassium 3.8 (3.4-5.0) mmol/L Chloride 105 (98-107) mmol/L Carbon Dioxide 23 (22-30) mmol/L Anion Gap 10 (4-12) mmol/L BUN 17 D (7-17) mg/dL Creatinine 1.00 (0.7-1.0) mg/dL Estim Creat Clear Calc 62 ml/min Estimated GFR 56 L (59 - ) Glucose 97 (65-110) mg/dL Calcium 9.6 (8.4-10.2) mg/dL Total Bilirubin 0.7 (0.2-1.3) mg/dL AST 23 (14-36) U/L ALT 15 (6-35) U/L Alkaline Phosphatase 103 (38-126) U/L Troponin I < 0.012 (0.000-0.034) ng/mL Total Protein 8.0 (6.3-8.2) g/dL Albumin 4.7 (3.5-5.1) g/dL Lipase 172 (23-300) U/L <Vamsi Parra MD - Last Filed: 08/07/24 09:07> Discharge Plan Discharge Clinical Impression: Chest pain, A-fib <Berhane Bustillos MD - Last Filed: 08/07/24 07:09> Patient Disposition: Still a Patient <Berhane Bustillos MD - Last Filed: 08/07/24 07:09> Condition: Stable <Berhane Bustillos MD - Last Filed: 08/07/24 07:09> Prescriptions: No Action aspirin [Adult Aspirin Regimen] 81 mg tablet,delayed release (DR/EC) 81 mg PO DAILY pravastatin 20 mg tablet 20 mg PO DAILY tizanidine 4 mg tablet 4 mg PO Q6H PRN hydrochlorothiazide 12.5 mg tablet 12.5 mg PO DAILY Qty: 30 2RF Eliquis 5 mg tablet 1 tablet PO BID Hold Instructions: Resume on 11/06/22. resume Eliquis Wednesday morning losartan 100 mg tablet 100 mg PO DAILY amlodipine 10 mg tablet 10 mg PO DAILY levothyroxine 112 mcg tablet 112 mcg PO DAILY albuterol sulfate 90 mcg/actuation HFA aerosol inhaler 1 inh inhalation QID Qty: 8.5 0RF Lactobacillus acidophilus Capsule 100 mg PO DAILY Qty: 90 2RF esomeprazole magnesium 20 mg capsule,delayed release(DR/EC) See Rx Instructions .ROUTE .COMPLEX Qty: 90 2RF Dose Instruction: TAKE 1 CAPSULE DAILY Rx Instructions: TAKE 1 CAPSULE DAILY <Berhane Bustillos MD - Last Filed: 08/07/24 07:09> Follow-up/Referrals: Husam Proctor MD [Primary Care Provider] - <Berhane Bustillos MD - Last Filed: 08/07/24 07:09> Quality HEART score for chest pain patients History: moderately suspicious <Berhane Bustillos MD - Last Filed: 08/07/24 07:09> ECG: non specific repolarization disturbance/LBTB/PM <Berhane Bustillos MD - Last Filed: 08/07/24 07:09> Age: > 45 and < 65 years <Berhane Bustillos MD - Last Filed: 08/07/24 07:09> Risk factors: 1 or 2 risk factors <Berhane Bustillos MD - Last Filed: 08/07/24 07:09> Troponin: < or = to 1x normal limit <Berhane Bustillos MD - Last Filed: 08/07/24 07:09> Heart score: 4 <Berhane Bustillos MD - Last Filed: 08/07/24 07:09> 4 <Vamsi Parra MD - Last Filed: 08/07/24 09:07>
[2024-08-07] MEDS: ONDANSETRON INJ 4 MG/2 ML VIAL IV PUSH (06:16)
[2024-08-07] MEDS: fentaNYL CITRATE INJ (*CRX) 100 MCG/2 ML VIAL IV PUSH (06:17)
[2024-08-07 06:19] LABS: Alanine Aminotransferase 15 U/L (6-35); Albumin Level 4.7 g/dL (3.5-5.1); Alkaline Phosphatase 103 U/L (38-126); Anion Gap 10 mmol/L (4-12); Aspartate Amino Transferase 23 U/L (14-36); Bilirubin,Total 0.7 mg/dL (0.2-1.3); Blood Urea Nitrogen 17 mg/dL (7-17); Calcium 9.6 mg/dL (8.4-10.2); Carbon Dioxide 23 mmol/L (22-30); Chloride 105 mmol/L (98-107); Estimated CRCL calculation 62 ml/min; Estimated Glomerular Filt Rate 56; Glucose 97 mg/dL (65-110); INR 0.9; Lipase 172 U/L (23-300); Potassium 3.8 mmol/L (3.4-5.0); Sodium 138 mmol/L (137-145)
[2024-08-07 06:20] LABS: Partial Thromboplastin Time 28.7 Seconds (22.3-36.8)
[2024-08-07 06:30] LABS: Troponin I < 0.012 ng/mL (0.000-0.034)
--- NOTE | 2024-08-07 06:32 | PC.NURSE ---
Patient in CT at this time.
[2024-08-07] MEDS: ACETAMINOPHEN 325 MG TABLET 650 MG PO (08:56)
--- NOTE | 2024-08-07 09:30 | ADMGEN ---
This patient, Leona Pizarro, was admitted to IMU Room 206-01. Patient/family oriented to hospital policies and general routines including ID bracelet, bed and alarms, visiting hours, pain management, procedures, bathroom and other care routines, personal items, smoking policy, room service/diet, and visiting hours. Information on how to activate the Rapid Response Team has been discussed. Patient/Family are encouraged to report perceived risks to care and to ask questions if they do not understand what they are told or what they should do.
[2024-08-07 09:36] LABS: Troponin I < 0.012 ng/mL (0.000-0.034)
[2024-08-07 10:06] LABS: Cholesterol 178 mg/dL (0-200); HDL Direct 56 mg/dL; Triglycerides 90 mg/dL (<150)
[2024-08-07 10:16] LABS: LDL Cholesterol Direct 83 mg/dL
--- NOTE | 2024-08-07 11:25 | PM.CNCAR ---
Assessment and Plan Assessment and plan (1) Chest pain: Code(s): R07.9 - Chest pain, unspecified Status: Acute Assessment and Plan: Atypical, reproducible chest pain with negative troponin x2. She is known to not have obstructive coronary artery disease (left heart catheterization 2021, 30% RCA stenosis). Do not recommend any workup in this regard. (2) A-fib: Code(s): I48.91 - Unspecified atrial fibrillation Status: Acute Assessment and Plan: She has a history of pAF. Has not had a known episode of AF since February until now. Will add low dose metoprolol to her regimen for HR control when in AF. (3) Hypertension: Qualifiers: Hypertension type: other secondary hypertension Qualified Code(s): I15.8 - Other secondary hypertension Code(s): I10 - Essential (primary) hypertension Status: Acute Assessment and Plan: Continue losartan and amlodipine. Adding metoprolol. Further management by her established supervisor cook room, Dr. Mccormack (4) RUPAL (obstructive sleep apnea): Code(s): G47.33 - Obstructive sleep apnea (adult) (pediatric) Status: Acute Assessment and Plan: Not complaint with CPAP. (5) Hyperlipidemia: Code(s): E78.5 - Hyperlipidemia, unspecified Status: Acute Assessment and Plan: Intolerant to statins. May be candidate for PCSK9 inhibitor, will defer to Dr. Mccormack Plan Cardiology will sign off please call with questions History of Present Illness History of Present Illness Consult date/time: 08/07/24 11:25 Requesting physician: Deana Martin MD Consult reason: chest pain and atrial fibrillation Reason For Visit: chest pain,afib rvr Narrative: Leona Pizarro is a 63 year old female admitted to the hospital because of chest pain atrial fibrillation with rapid ventricular response. This is a patient who has a history of paroxysmal atrial fibrillation, hypertension, and mild, non obstructive coronary artery disease. She began to experience left-sided chest pain yesterday afternoon at home. The pain was initially a sharp sensation but progressed to a feeling of tightness /heaviness. She checked her blood pressure and found it to be elevated, so she took an extra of dose of losartan which she reports doing frequently when her blood pressure is elevated. She also took a full dose of aspirin. She was also experiencing palpitations at that time. Her chest discomfort did not improve, therefore she came to the emergency department for evaluation. Her initial EKG showed atrial fibrillation with rapid ventricular response, rate 120 ppm, She has since converted back to sinus rhythm. She reports that the discomfort in her chest has been constant since the time of onset but has improved some. Review of Systems Review of Systems: All systems reviewed & are unremarkable except as noted in HPI and below PMFSH Past Medical History Medical History Anal sphincter spasm Atrial fibrillation Atypical chest pain Deep vein thrombophlebitis of leg Diarrhea External hemorrhoids GERD (gastroesophageal reflux disease) Hip pain Hyperlipidemia Hypertension Hypothyroidism Ashley's Migraine RUPAL (obstructive sleep apnea) Peripheral vascular disease iliac stent 2019 Preoperative clearance RBBB Varicose vein of leg Surgical History Surgical History H/O skin graft right finger x2 History of ankle surgery x4 History of bilateral hip replacements History of hysterectomy Hx of cholecystectomy Hx of tonsillectomy S/P breast biopsy, left x2 S/P cubital tunnel release [place] teeth removed Family History Family History Father Kidney disease Asbestos exposure Hypertension Acute myocardial infarction Mother Lung cancer Cerebrovascular accident Hypertension Sibling Skin cancer Breast cancer Hypertension Cerebrovascular accident Sibling Ashley's disease Coronary artery stenosis Social History Social History Social History: Lifelong nonsmoker. Denies alcohol or drug use. Lives with the . Full code. She nominates her to be the individual would make medical decisions for her if she is unable. Smoking status: Never smoker Second hand tobacco smoke exposure: Yes Alcohol intake: never Substance use: never Substance use type: does not use Do You Feel Safe in your Home?: Yes Lack of Transportation: No Lack of Food: Never True Current Housing: I Have Housing Concerned About Future Housing: No Difficulty Paying Gas/Electric Bills: No Difficulty Paying for Meds: No Currently Unemployed: No Education: Associate Degree Difficulty w/ Childcare or Family Care: No Living arrangements: with family Occupation/Education: retired Gender identity (if verbalized by the patient): Female Spiritual care concerns: No Meds Home Medications and Allergies Home Medications Medication Instructions Recorded Confirmed Type losartan 100 mg tablet 100 mg PO DAILY 04/20/22 08/07/24 History albuterol sulfate 90 mcg/actuation 1 inh inhalation QID #8.5 grams 10/10/22 08/07/24 Rx aerosol inhaler amlodipine 10 mg tablet 10 mg PO DAILY 10/13/22 08/07/24 History levothyroxine 112 mcg tablet 112 mcg PO WEEKLY 10/29/22 08/07/24 History tizanidine 4 mg tablet 4 mg PO Q6H PRN Muscle Spasm 06/22/23 08/07/24 History Lactobacillus acidophilus 100 mg PO DAILY #90 caps 04/11/24 08/07/24 Rx esomeprazole magnesium 20 mg See Rx Instructions .Route 05/08/24 08/07/24 Rx capsule,delayed release .COMPLEX #90 caps peg 400-propylene glycol (PF) 0.4 1 drp EACH EYE 4-6XD PRN Dry Eye(S) 08/07/24 08/07/24 History %-0.3 % eye drops in a dropperette (Systane (PF)) thyroid (pork) 60 mg tablet 60 mg PO DAILY 08/07/24 08/07/24 History Allergies Allergy/AdvReac Type Severity Reaction Status Date / Time diclofenac Allergy Severe Difficulty Verified 08/07/24 05:58 Breathing hydrocodone Allergy Intermediate Hives Verified 08/07/24 10:18 Penicillins Allergy Intermediate Hives Verified 08/07/24 10:18 adhesive tape Allergy Mild BLISTERS Verified 08/07/24 10:18 aripiprazole Allergy Unknown Irritable Verified 08/07/24 05:58 morphine Allergy Unknown Dyspnea / Verified 08/07/24 10:18 SOB celecoxib [From Celebrex] AdvReac Severe Nausea and Verified 08/07/24 10:18 Vomiting hydromorphone [From Dilaudid] AdvReac Severe Nausea and Verified 08/07/24 05:58 Vomiting oxycodone [From OxyContin] AdvReac Intermediate Hives Verified 08/07/24 10:18 lisinopril AdvReac Unknown Cough Verified 08/07/24 10:18 Ibqhhtz-HAT-DuH Reductase AdvReac Unknown Weakness Verified 08/07/24 10:18 Inhibitor [Qydnymm-Ewy-Sjv Reductase Inhibitor] citalopram [From Celexa] AdvReac Nausea and Verified 08/07/24 05:58 Vomiting duloxetine [From Cymbalta] AdvReac Vomiting Verified 08/07/24 05:58 vortioxetine AdvReac Nausea and Verified 08/07/24 05:58 [From Trintellix] Vomiting Vital Signs Vital Signs - 24 hr 08/07/24 05:52 08/07/24 05:56 08/07/24 05:57 Temperature 36.6 C Pulse Rate 117 H 118 H Respiratory Rate 19 Blood Pressure 140/104 H Pulse Oximetry 100 100 Oxygen Delivery Room Air Room Air 08/07/24 06:39 08/07/24 06:45 08/07/24 07:00 Temperature Pulse Rate 68 63 63 Respiratory Rate 14 15 15 Blood Pressure Pulse Oximetry 99 91 95 Oxygen Delivery 08/07/24 07:15 08/07/24 08:01 08/07/24 08:31 Temperature Pulse Rate 65 61 62 Respiratory Rate 12 16 20 Blood Pressure 123/70 134/88 Pulse Oximetry 97 98 97 Oxygen Delivery 08/07/24 08:56 08/07/24 09:51 Temperature 36.7 C Pulse Rate 86 61 Respiratory Rate 19 20 Blood Pressure 134/88 157/75 H Pulse Oximetry 99 100 Oxygen Delivery Exam Const: General: comfortable, no acute distress, alert and awake Orientation/consciousness: patient oriented x3 HENMT: Head: normal to inspection Eyes: General: appearance normal, both eyes and all related structures Pupils: Equal, round and reactive pupils present Neck: Neck: normal visual inspection, supple and no JVD Carotids: normal carotid upstroke Chest: Other: Reproducible chest wall pain to palpation Resp: Effort & Inspection: normal respiratory effort Auscultation: clear to auscultation bilaterally Cardio: Rate: regular rate Rhythm: regular rhythm Heart sounds: S1 normal heart sound present, S2 normal heart sound present and no murmurs GI: Auscultation: normal bowel sounds Skin: General skin exam: normal color Neuro: General: patient oriented x3 Cranial nerves: Yes Equal, round and reactive pupils present Extrem: General: normal to inspection Psych: Appearance: grossly normal Mental Status: mental status grossly normal Results Labs and Meds 08/07/24 06:03 08/07/24 06:03 Lab results: Cardiac Enzymes 08/07/24 08/07/24 Range/Units 06:03 09:04 AST 23 (14-36) U/L Troponin I < 0.012 < 0.012 (0.000-0.034) ng/mL Coagulation 08/07/24 Range/Units 06:03 PT 13.0 (11.1-14.7) Seconds APTT 28.7 (22.3-36.8) Seconds Lipids 08/07/24 Range/Units 09:04 Triglycerides 90 (<150) mg/dL Cholesterol 178 (0-200) mg/dL CBC 08/07/24 Range/Units 06:03 WBC 6.9 (4.5-10.0) K/mm3 RBC 4.48 (4.2-5.4) M/mm3 Hgb 14.6 (12.0-15.0) g/dL Hct 42.0 (37.0-47.0) % Plt Count 289 (150-375) k/mm3 Lymph # (Auto) 1.54 (0.9-3.2) K/mm3 [place] # (Auto) 0.5 (0.1-0.6) K/mm3 Eos # (Auto) 0.0 (0-0.3) K/mm3 Baso # (Auto) 0.0 (0.0-0.1) K/mm3 Comprehensive Metabolic Panel 08/07/24 Range/Units 06:03 Sodium 138 (137-145) mmol/L Potassium 3.8 (3.4-5.0) mmol/L Chloride 105 (98-107) mmol/L Carbon Dioxide 23 (22-30) mmol/L BUN 17 D (7-17) mg/dL Creatinine 1.00 (0.7-1.0) mg/dL Glucose 97 (65-110) mg/dL Calcium 9.6 (8.4-10.2) mg/dL AST 23 (14-36) U/L ALT 15 (6-35) U/L Alkaline Phosphatase 103 (38-126) U/L Total Protein 8.0 (6.3-8.2) g/dL Albumin 4.7 (3.5-5.1) g/dL Patient Weight 08/07/24 23:59 Weight 90.4 kg
--- NOTE | 2024-08-07 11:30 | PM.IMHP ---
H&P: HPI History of Present Illness Date/Time: 08/07/24 11:30 Chief Complaint: Chest pain, Afib with RVR Narrative: Leona Pizarro is a 63 year old female hx afib, DVT, hypothyroidism with nathan's, unprovoked DVT, admitted for left chest pain and shortness of breath that woke her from sleep. HR 120's afib on the monitor but converted to NSR without interventions. Chest pain resolved prior to arrival to the floor. She reported taking home losartan 100mg BID instead of 100mg daily as prescribed due to recently elevated blood pressure. She had noticed blood pressures were more elevated recently but hadn't checked them in months prior to that. She also reported that she did not take a blood thinner for afib because she did not like to take medications. Patient did not wish to try metoprolol due to significant bradycardia (HR 30's) previously, and did not wish to try a diuretic due to severe dehydration previously. Consulted cardiology. Discussed trial of imdur and hydralazine with cardiology, ordered imdur but patient did not wish to try it. Also did not wish to discuss other options or have any further conversations about alternative medications. OK for discharge per cardiology and she planned to follow up with her primary quality process engineer. Blood pressure 151/84 at discharge Review of Systems Review of Systems: No nausea, vomiting, abdominal pain, fever, or other symptoms PMFSH Past Medical History Medical History Anal sphincter spasm Atrial fibrillation Atypical chest pain Deep vein thrombophlebitis of leg Diarrhea External hemorrhoids GERD (gastroesophageal reflux disease) Hip pain Hyperlipidemia Hypertension Hypothyroidism Nathan's Migraine RUPAL (obstructive sleep apnea) Peripheral vascular disease iliac stent 2019 Preoperative clearance RBBB Varicose vein of leg Surgical History Surgical History H/O skin graft right finger x2 History of ankle surgery x4 History of bilateral hip replacements History of hysterectomy Hx of cholecystectomy Hx of tonsillectomy S/P breast biopsy, left x2 S/P cubital tunnel release [place] teeth removed Family History Family History Father Kidney disease Asbestos exposure Hypertension Acute myocardial infarction Mother Lung cancer Cerebrovascular accident Hypertension Sibling Skin cancer Breast cancer Hypertension Cerebrovascular accident Sibling Nathan's disease Coronary artery stenosis Social History Social History Social History: Lifelong nonsmoker. Denies alcohol or drug use. Lives with the . Full code. She nominates her to be the individual would make medical decisions for her if she is unable. Smoking status: Never smoker Second hand tobacco smoke exposure: Yes Alcohol intake: never Substance use: never Substance use type: does not use Do You Feel Safe in your Home?: Yes Lack of Transportation: No Lack of Food: Never True Current Housing: I Have Housing Concerned About Future Housing: No Difficulty Paying Gas/Electric Bills: No Difficulty Paying for Meds: No Currently Unemployed: No Education: Associate Degree Difficulty w/ Childcare or Family Care: No Living arrangements: with family Occupation/Education: retired Gender identity (if verbalized by the patient): Female Spiritual care concerns: No Meds Home Medications and Allergies Home Medications Medication Instructions Recorded Confirmed Type losartan 100 mg tablet 100 mg PO DAILY 04/20/22 08/07/24 History amlodipine 10 mg tablet 10 mg PO DAILY 10/13/22 08/07/24 History levothyroxine 112 mcg tablet 112 mcg PO WEEKLY 10/29/22 08/07/24 History tizanidine 4 mg tablet 4 mg PO Q6H PRN Muscle Spasm 06/22/23 08/07/24 History Lactobacillus acidophilus 100 mg PO DAILY #90 caps 04/11/24 08/07/24 Rx esomeprazole magnesium 20 mg See Rx Instructions .Route 05/08/24 08/07/24 Rx capsule,delayed release .COMPLEX #90 caps apixaban 5 mg tablet (Eliquis) 5 mg PO Q12HR #60 tabs 08/07/24 Rx peg 400-propylene glycol (PF) 0.4 1 drp EACH EYE 4-6XD PRN Dry Eye(S) 08/07/24 08/07/24 History %-0.3 % eye drops in a dropperette (Systane (PF)) thyroid (pork) 60 mg tablet 60 mg PO DAILY 08/07/24 08/07/24 History Allergies Allergy/AdvReac Type Severity Reaction Status Date / Time diclofenac Allergy Severe Difficulty Verified 08/07/24 05:58 Breathing hydrocodone Allergy Intermediate Hives Verified 08/07/24 10:18 Penicillins Allergy Intermediate Hives Verified 08/07/24 10:18 adhesive tape Allergy Mild BLISTERS Verified 08/07/24 10:18 aripiprazole Allergy Unknown Irritable Verified 08/07/24 05:58 morphine Allergy Unknown Dyspnea / Verified 08/07/24 10:18 SOB celecoxib [From Celebrex] AdvReac Severe Nausea and Verified 08/07/24 10:18 Vomiting hydromorphone [From Dilaudid] AdvReac Severe Nausea and Verified 08/07/24 05:58 Vomiting oxycodone [From OxyContin] AdvReac Intermediate Hives Verified 08/07/24 10:18 lisinopril AdvReac Unknown Cough Verified 08/07/24 10:18 Zsnzdun-NFH-ZkF Reductase AdvReac Unknown Weakness Verified 08/07/24 10:18 Inhibitor [Dadybuy-Hfn-Pmk Reductase Inhibitor] citalopram [From Celexa] AdvReac Nausea and Verified 08/07/24 05:58 Vomiting duloxetine [From Cymbalta] AdvReac Vomiting Verified 08/07/24 05:58 vortioxetine AdvReac Nausea and Verified 08/07/24 05:58 [From Trintellix] Vomiting Vital Signs Vital Signs - 24 hr 08/07/24 05:52 08/07/24 05:56 08/07/24 05:57 Temperature 97.8 F Pulse Rate 117 H 118 H Respiratory Rate 19 Blood Pressure 140/104 H Pulse Oximetry 100 100 Oxygen Delivery Room Air Room Air 08/07/24 06:39 08/07/24 06:45 08/07/24 07:00 Temperature Pulse Rate 68 63 63 Respiratory Rate 14 15 15 Blood Pressure Pulse Oximetry 99 91 95 Oxygen Delivery 08/07/24 07:15 08/07/24 08:01 08/07/24 08:31 Temperature Pulse Rate 65 61 62 Respiratory Rate 12 16 20 Blood Pressure 123/70 134/88 Pulse Oximetry 97 98 97 Oxygen Delivery 08/07/24 08:56 08/07/24 09:51 Temperature 98.0 F Pulse Rate 86 61 Respiratory Rate 19 20 Blood Pressure 134/88 157/75 H Pulse Oximetry 99 100 Oxygen Delivery Exam Narrative: General - Awake and alert. No acute distress Eyes - PERRLA, EOM intact ENT - No thrush, No erythema Neck - No noticeable or palpable swelling Lymph Nodes - No lymphadenopathy Cardiovascular - RRR no m/r/g, no JVD Lungs: Clear to auscultation, No wheezing, use of accessory muscles, no crackles or wheezes. Skin - Skin warm and dry, no wounds or rashes Abdomen - Normal bowel sounds, abdomen soft and nontender Extremities - No edema, cyanosis or clubbing Musculoskeletal - 5/5 strength, normal range of motion, no swollen or erythematous joints. Neurological ? Alert and oriented x 3, CN 2-12 grossly intact. Psych: Normal mood and affect H&P: Results Labs Labs: Short CBC 08/07/24 Range/Units 06:03 WBC 6.9 (4.5-10.0) K/mm3 Hgb 14.6 (12.0-15.0) g/dL Hct 42.0 (37.0-47.0) % Plt Count 289 (150-375) k/mm3 BMP 08/07/24 06:03 Sodium 138 Potassium 3.8 Chloride 105 Carbon Dioxide 23 BUN 17 D Creatinine 1.00 Glucose 97 Calcium 9.6 Cardiac Enzymes 08/07/24 08/07/24 Range/Units 06:03 09:04 Troponin I < 0.012 < 0.012 (0.000-0.034) ng/mL Liver Function 08/07/24 Range/Units 06:03 Total Bilirubin 0.7 (0.2-1.3) mg/dL AST 23 (14-36) U/L ALT 15 (6-35) U/L Alkaline Phosphatase 103 (38-126) U/L Albumin 4.7 (3.5-5.1) g/dL Assessment and Plan Assessment and plan (1) Chest pain: Code(s): R07.9 - Chest pain, unspecified Status: Acute Assessment and Plan: Reproducible Currently resolved. (2) A-fib: Code(s): I48.91 - Unspecified atrial fibrillation Status: Acute Assessment and Plan: Reports bradycardia from a beta stan previously. Does not take blood thinner because she prefers not to take medications Recommended she start taking apixaban due to risk of stroke. Also discussed that it was likely better to take aspirin rather than nothing, but that apixaban was recommended (3) Hypertension: Qualifiers: Hypertension type: other secondary hypertension Qualified Code(s): I15.8 - Other secondary hypertension Code(s): I10 - Essential (primary) hypertension Status: Acute Assessment and Plan: Hasn't tolerated metoprolol in the past. Reports it caused severe bradycardia Reports a cough from lisinopril Reports dehydration with a diuretic previously and not willing to try one this admission Has been taking losartan 100 BID for the last 3 days, prior to that 100 daily Hospitalist MIPS Advance Care Plan I have confirmed that the patient's Advanced Care Plan is present, code status is documented, or surrogate decision maker is listed in patient medical record.: Yes Medication Reconciliation I have utilized all available resources to obtain, update and review the patients current medications (includes all prescriptions, OTC, herbals, cannabis, and nutritional supplements).: Yes
[2024-08-07 12:33] LABS: Troponin I < 0.012 ng/mL (0.000-0.034)
[2024-08-07] MEDS: APIXABAN 5 MG TABLET PO (12:54)
[2024-08-07 14:03] LABS: Phosphorus 4.2 mg/dL (2.5-4.5)
--- NOTE | 2024-08-07 15:11 | PM.DS ---
DS: Admitting Diagnosis Discharge Date 08/07/2024 Admitting Diagnosis Afib with RVR DS: Discharge Diagnosis Discharge Diagnosis (1) A-fib: Code(s): I48.91 - Unspecified atrial fibrillation Status: Acute (2) Chest pain: Code(s): R07.9 - Chest pain, unspecified Status: Acute DS: Summary Hospital Course Reason for hospitalization: Leona Pizarro is a 63 year old female hx afib, DVT, hypothyroidism with nathan's, unprovoked DVT, admitted for left chest pain and shortness of breath that woke her from sleep. HR 120's afib on the monitor but converted to NSR without interventions. Chest pain resolved prior to arrival to the floor. She reported taking home losartan 100mg BID instead of 100mg daily as prescribed due to recently elevated blood pressure. She had noticed blood pressures were more elevated recently but hadn't checked them in months prior to that. She also reported that she did not take a blood thinner for afib because she did not like to take medications. Patient did not wish to try metoprolol due to significant bradycardia (HR 30's) previously, and did not wish to try a diuretic due to severe dehydration previously. Consulted cardiology. Discussed trial of imdur and hydralazine with cardiology, ordered imdur but patient did not wish to try it. Also did not wish to discuss other options or have any further conversations about alternative medications. OK for discharge per cardiology and she planned to follow up with her primary community case manager. Blood pressure 151/84 at discharge Hospital Course: Patient presented to the hospital for chest pain and shortness of breath and was admitted for afib with RVR that resolved without intervention. She does not always take medications as prescribed due to personal choice. Recommended she take apixaban for hx afib. Discussed trial of various medications but she was not willing to try new medications while she was in the hospital and preferred to follow up with her primary community case manager. Cardiology was consulted and had nothing additional to offer given resolution of afib and patient preferences. Blood pressure stable for discharge. 08/07/[address] no PE, dissection or aortic aneurysm. Chest pain and shortness of breath had resolved. Left a message at her community case manager's office to call her back to follow up with her Status at Discharge Cognitive/behavioral status at discharge: A&OX4 Time Spent with Patient Time attestation: Total time spent providing and/or coordinating discharge services: 58 minutes Exam Narrative: General - Awake and alert. No acute distress Eyes - PERRLA, EOM intact ENT - No thrush, No erythema Neck - No noticeable or palpable swelling Lymph Nodes - No lymphadenopathy Cardiovascular - RRR no m/r/g, no JVD Lungs: Clear to auscultation, No wheezing, use of accessory muscles, no crackles or wheezes. Skin - Skin warm and dry, no wounds or rashes Abdomen - Normal bowel sounds, abdomen soft and nontender Extremities - No edema, cyanosis or clubbing Musculoskeletal - 5/5 strength, normal range of motion, no swollen or erythematous joints. Neurological ? Alert and oriented x 3, CN 2-12 grossly intact. Psych: Normal mood and affect DS: Data Data Completed and Pending Labs on day of discharge: Labs from last 24 hours 08/07/24 08/07/24 08/07/24 12:06 09:04 06:03 WBC 6.9 RBC 4.48 Hgb 14.6 Hct 42.0 MCV 93.8 MCH 32.6 MCHC 34.8 RDW 12.8 Plt Count 289 MPV 9.3 Immature Gran % (Auto) 0.1 Neut % (Auto) 70.3 Lymph % (Auto) 22.4 [place] % (Auto) 7.1 Eos % (Auto) 0.0 Baso % (Auto) 0.1 L Lymph # (Auto) 1.54 [place] # (Auto) 0.5 Eos # (Auto) 0.0 Baso # (Auto) 0.0 Abs Immat Gran (auto) 0.01 Absolute Neuts (auto) 4.8 Absolute Nucleated RBC 0.000 Nucleated RBC % 0.0 PT 13.0 INR 0.9 APTT 28.7 Sodium 138 Potassium 3.8 Chloride 105 Carbon Dioxide 23 Anion Gap 10 BUN 17 D Creatinine 1.00 Estim Creat Clear Calc 62 Estimated GFR 56 L Glucose 97 Calcium 9.6 Phosphorus 4.2 Magnesium 2.0 Total Bilirubin 0.7 AST 23 ALT 15 Alkaline Phosphatase 103 Troponin I < 0.012 < 0.012 < 0.012 Total Protein 8.0 Albumin 4.7 Triglycerides 90 Cholesterol 178 LDL Cholesterol Direct 83 HDL Direct 56 Lipase 172 TSH (Reflex) 3.410 Discharge Plan Discharge Attending physician on discharge: Annabel Lyons Consulting providers: Berhane Bustillos; Lee Mao; Sangita Tony Discharging Clinician: Annabel Lyons Patient Disposition: Home, Self-Care Activity: no shower and may shower Diet: heart healthy Wound Care Instructions: follow printed instructions Discharge Instructions: Follow up with cardiology in 1-2 weeks for further recommendations for controlling blood pressure. Patient Instructions: Chest Pain (DC) Stand Alone Forms: General Discharge Information Follow-up/Referrals: Husam Proctor MD [Primary Care Provider] - Mike Mccormack MD [Physician] - (Follow up in 1-2 weeks) Discharge Medications: New Eliquis 5 mg Tablet 5 mg PO Q12HR Qty: 60 1RF Continued tizanidine 4 mg tablet 4 mg PO Q6H PRN (Reason: Muscle Spasm) losartan 100 mg tablet 100 mg PO DAILY amlodipine 10 mg tablet 10 mg PO DAILY levothyroxine 112 mcg tablet 112 mcg PO WEEKLY Rx Instructions: Pt takes on thyroid (pork) 60 mg tablet 60 mg PO DAILY Systane (PF) 0.4-0.3 % Dropperette 1 drp EACH EYE 4-6XD PRN (Reason: Dry Eye(S)) Lactobacillus acidophilus Capsule 100 mg PO DAILY Qty: 90 2RF esomeprazole magnesium 20 mg capsule,delayed release(DR/EC) See Rx Instructions .ROUTE .COMPLEX Qty: 90 2RF Dose Instruction: TAKE 1 CAPSULE DAILY Rx Instructions: TAKE 1 CAPSULE DAILY Discontinued albuterol sulfate 90 mcg/actuation HFA aerosol inhaler 1 inh inhalation QID Qty: 8.5 0RF Date of admission: 08/07/24 08:23 Primary Care Provider: Husam Proctor Admitting Provider: Deana Martin Attending physician on admission: Annabel Lyons Condition: Stable Hospitalist MIPS Heart Failure (Exclusion) Patient has history of Heart Transplant or Left Ventricular Assistive Device?: No IF YES, STOP HERE Heart Failure (Qualifier) Patient has current or prior documentation of LVEF less than or equal to 40%, or mod/servere depressed LVSF?: No IF NO, STOP HERE
== END 2024-08-07 16:03 | disposition home or self-care (01) ==
LOC: ANHED 08:21 → ANHIMU 09:07
PROVIDERS: Student in an Organized Health Care Education/Training Program; Admitting Provider Family Medicine; Emergency Provider Emergency Medicine; PCP Emergency Medicine; Visit Provider Nurse Practitioner Acute Care
DX: R07.9 Chest pain, unspecified (principal); I48.91 Unspecified atrial fibrillation; I10 Essential (primary) hypertension; I73.9 Peripheral vascular disease, unspecified; E78.5 Hyperlipidemia, unspecified; E06.3 Autoimmune thyroiditis; G47.33 Obstructive sleep apnea (adult) (pediatric); Z95.820 Peripheral vascular angioplasty status with implants and grafts; Z79.82 Long term (current) use of aspirin; Z79.51 Long term (current) use of inhaled steroids
CPT/HCPCS: 36415; 71045; 71275; 80053; 80061; 83690; 83735; 84100; 84443; 84484; 85025; 85610; 85730; 93005; 96374; 96375; 99285; A9270; G0378; J2405; J3010; Q9967